=== PATIENT | male | born 1960 | race Caucasian/White ===

== ENCOUNTER → 2018-03-10 | Outpatient (CLI) | payer SELFPAY ==
--- NOTE | 2018-03-10 16:32 | RAD ---
03/10/2018 Ankle-brachial indices. Bilateral lower extremity arterial duplex ultrasound. INDICATION: Bilateral pedal edema COMPARISON STUDY: None available Discussion: Blood pressure measurements were obtained at the arms and ankles bilaterally. Ultrasound evaluation of the major arteries of bilateral lower extremities was performed including color Doppler imaging and spectral analysis. Static images are submitted to PACS. Right brachial pressure: 124 mmHg Left brachial pressure: 120 mmHg Right ankle pressure: 127 mmHg Left ankle pressure: 142 mmHg Right ankle brachial index 1.0 Left ankle-brachial index 1.1 Grossly normal waveforms and velocities are seen throughout the major arteries of the bilateral lower extremities. No focal elevation of velocities suggestive of hemodynamically significant stenosis are identified. No high-grade visual narrowing is are identified on color Doppler imaging. Lower extremity edema is noted bilaterally. IMPRESSION: Normal ankle-brachial indices. No sonographic evidence of focal hemodynamic significant stenosis involving major arteries of either lower extremity. Electronically signed by: Robinson Ngo MD (03/10/2018 4:28 PM) [facility]
== END | disposition home or self-care (01) ==
LOC: US 09:54
PROVIDERS: ATTEND Physician Assistant
DX: R60.0 Localized edema (principal)
CPT/HCPCS: 93922; 93925

== ENCOUNTER 2018-04-04 14:49 | Inpatient (IN) | payer OTHER ==
[~2018-04-04] VITALS: Ht 185.4 cm; Wt 137.0 kg
[2018-04-04 16:26] VITALS: BP 107/64
[2018-04-04 17:03] LABS: BASO # 0.1 x10^3/uL (0.0-0.2); BASO % 1 % (0-3); EOS # 0.1 x10^3/uL (0.0-0.7); EOS % 2 % (0-3); HEMATOCRIT 57.3 % (39.0-53.0); HEMOGLOBIN 18.6 g/dL (13.0-17.5); LYMPH # 1.2 x10^3/uL (1.0-4.8); LYMPH % 12 % (24-48); MEAN CORPUSCULAR HEMOGLOBIN 29 pg (25-35); MEAN CORPUSCULAR HGB CONC 32 g/dL (31-37); MEAN CORPUSCULAR VOLUME 90 fL (79-100); MONO # 1.3 x10^3/uL (0.0-1.1); MONO % 14 % (0-9); NEUT # 6.8 x10^3uL (1.8-7.7); NEUT % 72 % (31-73); PLATELET COUNT 133 x10^3/uL (140-400); RED BLOOD COUNT 6.35 x10^6/uL (4.30-5.70); RED CELL DISTRIBUTION WIDTH 16.3 % (11.5-14.5); WHITE BLOOD COUNT 9.5 x10^3/uL (4.0-11.0)
[2018-04-04 17:14] LABS: ALBUMIN 2.8 g/dL (3.4-5.0); ALBUMIN/GLOBULIN RATIO 0.8 (1.0-1.7); CALCIUM 8.3 mg/dL (8.5-10.1); CREATININE 1.4 mg/dL (0.7-1.3); GFR 52.2; POTASSIUM 3.1 mmol/L (3.5-5.1); TOTAL BILIRUBIN 1.2 mg/dL (0.2-1.0); TOTAL PROTEIN 6.4 g/dL (6.4-8.2)
[2018-04-04] MEDS ORDERED: GABA-586 PO (17:15)
[2018-04-04] MEDS ORDERED: LOSA25TA PO (17:15)
[2018-04-04] MEDS ORDERED: BUDE10.2 IH (17:15)
[2018-04-04] MEDS ORDERED: ALBU2.5V5 NEB (17:15)
[2018-04-04] MEDS ORDERED: METO-247 PO (17:15)
[2018-04-04] MEDS ORDERED: FURO80TA3 PO (17:15)
[2018-04-04] MEDS ORDERED: POTA20TA4 PO (17:15)
--- NOTE | 2018-04-04 17:24 | RAD ---
CHEST AP ONLY Clinical Indication: COPD/ASTHMA, EDEMA IN LOWER EXTREMITIES Comparison: AP chest September 07, 2014. Findings: The cardiomediastinal silhouette is normal. The central pulmonary vasculature is prominent. There are increased interstitial markings. Findings are similar to prior study. Mild left retrocardiac airspace disease. There is no pneumothorax. No pleural effusion is appreciated. No acute bone abnormality. IMPRESSION: 1. Pulmonary vascular congestion. 2. Mild left basilar retrocardiac airspace disease. Electronically signed by: Jb Negro MD (04/04/2018 5:20 PM) [facility]
[2018-04-04] MEDS ORDERED: POTASSIUM CHLORIDE 20 MEQ TABLET.ER. PO ONE (17:30)
[2018-04-04] MEDS ORDERED: ALBUTEROL SULFATE 2.5 MG/3 ML NEBU. NEB PRN (17:30)
[2018-04-04] MEDS: IPRATRPIUM/ALBUTEROL 0.5/2.5MG 3 ML NEBU. NEB SCH ×2 (17:44→19:40)
[2018-04-04] MEDS ORDERED: FUROSEMIDE 40 MG/4 ML VIAL IVP ONE (17:45)
[2018-04-04] MEDS ORDERED: LORazepam 1 MG TABLET PO PRN ×2 (18:00)
[2018-04-04] MEDS ORDERED: NICOTINE 21MG PATCH. TD PRN (18:00)
[2018-04-04 18:35] LABS: BGAS PH 7.31 (7.35-7.46)
--- NOTE | 2018-04-04 18:38 | HP ---
ADMIT DATE: 04/04/2018 HISTORY OF PRESENT ILLNESS: The patient is a 57-year-old male patient who was admitted directly from clinic complaining of pain and swelling of both lower extremities, weight gain. He stated that for the last year, he gained about 60 pounds and over the last week, he gained about 7 pounds. He did complain of shortness of breath, but denied any chest pain; does complain of orthopnea and paroxysmal nocturnal dyspnea. PAST MEDICAL HISTORY: His past medical history is significant for hypertension, chronic obstructive pulmonary disease, morbid obesity, obstructive sleep apnea. PAST SURGICAL HISTORY: Past surgical history is significant for tonsillectomy, excision of melanoma from the left axillary area and arthroscopic knee surgery both sides. ALLERGIES: He has no known drug allergies. MEDICATIONS: His medication list still is not available by this time I dictated this H and P. FAMILY HISTORY: He has one brother younger and seemingly healthy. His father at the age of 48 because of cerebral aneurysm, apparently has rheumatic fever, requiring valve replacement. Mother is still alive at age of 77 and survivor of colon cancer x twice. SOCIAL HISTORY: He is , has a son. He smokes 1 pack per day. He drinks 7-80 beers per week and drinks anything between 1-18 beers a day. 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 REVIEW OF SYSTEMS: The patient denied any blurring of vision, cataract, glaucoma or macular degeneration. Denied any earache, tinnitus or sensorineural deafness. Denied any nosebleeds, stuffy nose or postnasal drip. Denied any sore throat, sore tongue, toothache, hoarseness of voice or difficulty swallowing. Denied any nausea, vomiting, diarrhea or constipation. Denied any hematemesis, melena or hematochezia. Denied any dysuria, frequency or hematuria. Denied any chest pain. Did complain of shortness of breath, orthopnea or paroxysmal nocturnal dyspnea. Denied any cough, phlegm or hemoptysis. Denied any dizziness, lightheadedness, or vertigo. Denied any chills, rigors or fever. PHYSICAL EXAMINATION: GENERAL: When examining him, he was resting, slightly propped up in bed, in no apparent respiratory distress. There was no pallor, jaundice, cyanosis, or thyromegaly. No jugular venous distension. No limb edema. VITAL SIGNS: Her heart rate was 95, blood pressure was 107/64, temperature was 98.3, respiratory rate was 24, and oxygen saturation was only 86% on 4 liters oxygen. HEENT: Examination of the head, eyes, ears, nose and throat showed normocephalic, atraumatic. NECK: Supple. HEART: Showed normal first and second heart sounds with no gallop, rub or murmur. CHEST: Shows central trachea, equal chest expansion, air entry, vesicular sounds with bilateral scattered rhonchi diffusely. Both sides, I could not appreciate any crepitation. ABDOMEN: Markedly distended, soft, nontender. No guarding or rigidity. No organomegaly. Hernial orifices are intact and bowel sounds normal. NEUROLOGIC: He was awake, alert, responding appropriately. All his cranial nerves are intact. EXTREMITIES: He moves extremities without difficulty. Examination of the extremities showed that he has no clubbing, cyanosis with marked bilateral lower limb edema. LABORATORY DATA: His lab work showed a white cell count of 9500, hemoglobin 18.6, hematocrit 57.3, MCV 90, and platelet count of 133,000. His chemistry is still pending at the time of this dictation. ASSESSMENT AND PLAN: So, in summary, this is a 57-year-old male patient who was admitted with bgfxn-ud-eudamde hypoxic, probably hypercapnic respiratory failure, chronic obstructive pulmonary disease exacerbation, hypertension, obstructive sleep apnea and morbid obesity. We will obviously check his chest x-ray, his lab work. I will also add prothrombin time and INR as well ammonia level to his lab work. A chest x-ray and perhaps have blood gases and I will consult the cardiology team for to assist his management tomorrow. Apparently, he was on Zaroxolyn and he is getting 80 mg of Lasix without much improvement. JOSLYN VELOZ MD DR: SIMON/abdullahi JOB#: [id number] / [id number]
[2018-04-04 19:35] VITALS: BP 118/59
[2018-04-04] MEDS: BUDESONIDE 0.5 MG/2 ML NEBU NEB SCH (19:40)
[2018-04-04 20:37] VITALS: BP 95/57
[2018-04-04] MEDS: GABAPENTIN 300 MG CAPSULE. PO SCH (21:00)
[2018-04-04] MEDS: POTASSIUM CHLORIDE 20 MEQ TABLET.ER. PO SCH (21:00)
[2018-04-04] MEDS ORDERED: NON FORMULARY ITEM (Budesonide/Formoterol Fumarate (Symbicort 160-4.5 Mcg Inhaler) 2 PUFF) IH SCH (21:00)
[2018-04-04 21:32] LABS: BACTERIA,URINE FEW /HPF (0-FEW); BILIRUBIN,URINE NEG (NEG); CLARITY,URINE CLEAR; COLOR,URINE YELLOW; GLUCOSE,URINE NEG (NEG); NITRITE,URINE NEG (NEG); RBC,URINE OCC /HPF (0-2); SQUAMOUS EPITHELIAL CELL,UR OCC /LPF; UROBILINOGEN,URINE 0.2 mg/dL (0.2 mg/dL); WBC,URINE RARE /HPF (0-4)
[2018-04-04 21:33] LABS: HYALINE CASTS, URINE OCC /HPF
[2018-04-04] MEDS: ENOXAPARIN ** NOTE DOSE ** SYRINGE SQ SCH (22:13)
[2018-04-04] MEDS: methylPREDNISolone SOD SUCC PF 40 MG/ML VIAL. IV SCH (22:13)
[2018-04-04 22:17] LABS: BGAS PH 7.3 (7.35-7.46)
[2018-04-04 22:30] VITALS: BP 96/56
[2018-04-05] VITALS (9 sets, daily range): BP systolic 99–117; BP diastolic 57–68
[2018-04-05] MEDS: IPRATRPIUM/ALBUTEROL 0.5/2.5MG 3 ML NEBU. NEB SCH ×4 (05:39→21:07)
[2018-04-05] MEDS: methylPREDNISolone SOD SUCC PF 40 MG/ML VIAL. IV SCH ×3 (06:14→20:59)
[2018-04-05 06:22] LABS: BGAS PH 7.37 (7.35-7.46)
[2018-04-05 07:04] LABS: HEMATOCRIT 58.4 % (39.0-53.0); HEMOGLOBIN 18.6 g/dL (13.0-17.5); RED BLOOD COUNT 6.41 x10^6/uL (4.30-5.70); RED CELL DISTRIBUTION WIDTH 16.7 % (11.5-14.5); WHITE BLOOD COUNT 7.9 x10^3/uL (4.0-11.0)
[2018-04-05 07:18] LABS: CALCIUM 8.5 mg/dL (8.5-10.1); CREATININE 1.4 mg/dL (0.7-1.3); GFR 52.2; POTASSIUM 3.5 mmol/L (3.5-5.1)
[2018-04-05] MEDS: METOPROLOL SUCC 24HR ER 50 MG TAB.ER.24H. PO SCH (08:33)
[2018-04-05] MEDS: MULTIVITAMIN with MINERAL TABLET. PO SCH (08:33)
[2018-04-05] MEDS: THIAMINE IM 200 MG/2 ML VIAL. IM SCH (08:33)
[2018-04-05] MEDS: FOLIC ACID 1 MG TABLET PO SCH (08:34)
[2018-04-05] MEDS: POTASSIUM CHLORIDE 20 MEQ TABLET.ER. PO SCH ×3 (08:34→20:59)
[2018-04-05] MEDS: GABAPENTIN 300 MG CAPSULE. PO SCH ×3 (08:34→20:58)
[2018-04-05] MEDS: FUROSEMIDE 80 MG TABLET PO SCH (08:34)
[2018-04-05] MEDS: LOSARTAN 25 MG TABLET. PO SCH (08:34)
[2018-04-05] MEDS: ENOXAPARIN ** NOTE DOSE ** SYRINGE SQ SCH ×2 (08:35→20:59)
[2018-04-05] MEDS ORDERED: POTASSIUM CHLORIDE 20 MEQ TABLET.ER. PO SCH (09:00)
[2018-04-05] MEDS: BUDESONIDE 0.5 MG/2 ML NEBU NEB SCH ×2 (10:08→21:07)
--- NOTE | 2018-04-05 11:59 | PN ---
DATE: 04/05/2018 SUBJECTIVE: The patient is sitting in the edge of the bed, on BiPAP machine, maintaining his oxygen saturation 92% on FiO2 of 40%. He desats quickly, he takes off his BiPAP machine. On questioning him, he denied any chest pain. He continued to have marked bilateral lower limb edema. We did treat him with IV Lasix yesterday 40 mg once a day. PHYSICAL EXAMINATION: GENERAL: When I examined him, he looked well and was clearly in no apparent respiratory distress, has definitely no pallor, jaundice or cyanosis. No lymphadenopathy, no thyromegaly; marked bilateral generalized anasarca. VITAL SIGNS: His heart rate was 84, blood pressure 106/66, temperature was 98.7, respiratory rate was 30 and oxygen saturation was 89%. HEENT: Examination of the head, eyes, ears, nose and throat showed normocephalic, atraumatic. NECK: Supple. HEART: Showed normal first and second heart sounds with no gallop, rub or murmur. CHEST: Shows central trachea, equally reduced expansion, reduced air entry. I could not really appreciate any crepitation or rhonchi. ABDOMEN: Markedly distended, soft with periumbilical hernia. There is no guarding or rigidity. No organomegaly. Hernial orifices are intact and bowel sounds normal. NEUROLOGIC: He is awake, alert, responding appropriately. All his cranial nerves are intact. He moves extremities without difficulty. His intake over the last 24 hour was 360, output was 1050. LABORATORY DATA AND IMAGING STUDIES: His lab work as of this morning showed a white cell count 7900, hemoglobin 18.6, hematocrit 58.4, MCV 91, and platelet count of 134,000. His blood gas this morning showed pH of 7.37, pCO2 of 73, pO2 of 65, bicarbonate of 42, and oxygen saturation was 90% on FiO2 55%. His chemistry showed a serum sodium 143, potassium 3.5, chloride 97, bicarbonate 40, anion gap of 6, BUN 44, creatinine 1.4, estimated GFR was 52 mL per minute. His glucose was 122, calcium was 8.5. His prothrombin time was 12.8, INR of 1.3. Urinalysis was essentially unremarkable. His chest x-ray showed that the cardiomediastinal silhouette normal. The central pulmonary vasculature is prominent. There are increased interstitial markings. He has mild left retrocardiac airspace disease. There is no pneumothorax. No pleural effusion is appreciated with no acute bony abnormalities with the impression is that the patient has pulmonary vascular congestion, mild left basilar retrocardiac airspace disease. ASSESSMENT: So, in summary, this is a 57-year-old male patient, who was admitted with vjcjy-mf-pepnkfr hypoxic hypercapnic respiratory failure. He has tzhaw-bf-jtqlpuk congestive heart failure, morbid obesity, obstructive sleep apnea. PLAN: Plan is to continue with IV Lasix, continue with all his medication, continue with BiPAP machine. I have consulted the Cardiology team to assist with the management. JOSLYN VELOZ MD DR: SIMON/abdullahi JOB#: [id number] / [id number]
--- NOTE | 2018-04-05 12:16 | EKG ---
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
--- NOTE | 2018-04-05 16:50 | PDOC2 ---
CONSULT Date of Admission DATE: 04/05/18 TIME: 16:35 Reason for Consult: heart failure Referring Physician: Dr. Zamora Chief Complaint SOB Source: Patient History of Present Illness The patient is a 57 year old male admitted for increasing SOB, HDZ and lower extremity swelling. This has been progressive over several months. The patient denies chest pain. He has a history of COPD and continues to smoke. He is morbidly obese and has KIAH. After treatment with lasix is is feeling slightly better. CXR shows vascular congestion. No acute EKG changes. Cardiovascular: HTN Pulmonary: Bronchitis, COPD, Other (KIAH) GI: GERD Musculoskeletal: Osteoarthritis Past Surgical History: Tonsillectomy, Other (melinoma excision, bilateral orthoscopic knee surgery) Family History: Hypertension Smoke: 1 pack per day ALCOHOL: heavy Current Medications Current Medications Albuterol Sulfate (Ventolin) 2.5 mg PRN Q6HRS PRN NEB SHORTNESS OF BREATH; Start 04/04/18 at 17:30 Gabapentin (Neurontin) 300 mg TID PO Last administered on 04/05/18at 14:08; Start 04/04/18 at 21:00 Losartan Potassium (Cozaar) 25 mg DAILY PO ; Start 04/05/18 at 09:00 Potassium Chloride (Klor-Con) 20 meq DAILY PO ; Start 04/05/18 at 09:00; Status UNV Non-Formulary Medication (Budesonide/ Formoterol Fumarate (Symbicort 160-4.5 Mcg Inhaler)) 2 puff BID IH ; Start 04/04/18 at 21:00; Status UNV Furosemide (Lasix) 80 mg DAILY PO Last administered on 04/05/18at 08:34; Start 04/05/18 at 09:00 Metoprolol Succinate (Toprol Xl) 100 mg DAILY PO Last administered on at 08:33; Start 04/05/18 at 09:00 Albuterol/ Ipratropium (Duoneb) 3 ml RTQID NEB Last administered on 04/05/18at 15:39; Start 04/04/18 at 20:00 Methylprednisolone Sodium Succinate (SOLU-Medrol 40MG VIAL) 40 mg Q8HRS IV Last administered on 04/05/18at 14:08; Start 04/04/18 at 22:00 Potassium Chloride (Klor-Con) 40 meq 1X ONCE PO Last administered on at 17:58; Start 04/04/18 at 17:30; Stop 04/04/18 at 17:37; Status DC Potassium Chloride (Klor-Con) 20 meq TID PO Last administered on 04/05/18at 14: 08; Start 04/04/18 at 21:00 Furosemide (Lasix) 40 mg 1X ONCE IVP Last administered on 04/04/18at 17:58; Start 04/04/18 at 17:45; Stop 04/04/18 at 17:46; Status DC Budesonide (Pulmicort) 0.5 mg RTBID NEB Last administered on 04/05/18at 10:08; Start 04/04/18 at 20:00 Multivitamins/ Calcium (Thera-M Plus) 1 tab DAILY PO Last administered on 04/05at 08:33; Start 04/05/18 at 09:00 Folic Acid (Folic Acid) 1 mg DAILY PO Last administered on 04/05/18at 08:34; Start 04/05/18 at 09:00 Thiamine HCl (Thiamine Im) 100 mg DAILY IM Last administered on 04/05/18at 08: 33; Start 04/05/18 at 09:00; Stop 04/10/18 at 08:59 Lorazepam (Ativan) 4 mg PRN Q1HR PRN PO For CIWA 8-14; Start 04/04/18 at 18:00 Lorazepam (Ativan) 8 mg PRN Q1HR PRN PO For CIWA 15 or greater; Start at 18:00 Nicotine (Nicoderm Cq 21mg) 1 patch PRN DAILY PRN TD SMOKING CESSATION; Start 04/04/18 at 18:00 Enoxaparin Sodium (Lovenox 150mg Syringe) 150 mg Q12HR SQ Last administered on 04/05/18at 08:35; Start 04/04/18 at 21:00 Active Scripts Active Reported Gabapentin (Gabapentin) 300 Mg Capsule 300 Mg PO TID Symbicort 160-4.5 Mcg Inhaler (Budesonide/Formoterol Fumarate) 10.2 Gm Hfa.aer.ad 2 Puff IH BID Cozaar (Losartan Potassium) 25 Mg Tablet 25 Mg PO DAILY Albuterol Sulfate Neb Soln (Albuterol Sulfate) 2.5 Mg/3 Ml Vial.neb 1 Vial NEB PRN Q6HRS PRN Metoprolol Succinate ( Xl ) (Metoprolol Succinate) 100 Mg Tab.er.24h 1 Tab PO DAILY Klor-Con M20 (Potassium Chloride) 20 Meq Tab.er.prt 1 Tab PO DAILY Furosemide 80 Mg Tablet 1 Tab PO DAILY Allergies: Coded Allergies: No Known Drug Allergies (Unverified , 04/04/18) General: YES: Fatigue Respiratory: YES: Shortness of breath, SOB with excertion General: mild distress HEENT: Atraumatic Lungs: Other (Mildly decreased breath sounds.) Heart: Regular rate Abdomen: Normal bowel sounds VITALS Vital Signs Date Time Temp Pulse Resp B/P (MAP) Pulse Ox O2 Delivery O2 Flow Rate FiO2 04/05/18 15:40 86 Nasal Cannula 3.0 04/05/18 12:00 89 117/61 (79) 04/05/18 06:13 98.7 04/05/18 05:51 30 Labs Laboratory Tests Test 04/04/18 16:50 04/04/18 18:00 04/04/18 21:00 04/04/18 22:05 White Blood Count 9.5 x10^3/uL (4.0-11.0) Red Blood Count 6.35 x10^6/uL (4.30-5.70) Hemoglobin 18.6 g/dL (13.0-17.5) Hematocrit 57.3 % (39.0-53.0) Mean Corpuscular Volume 90 fL (79-100) Mean Corpuscular Hemoglobin 29 pg (25-35) Mean Corpuscular Hemoglobin Concent 32 g/dL (31-37) Red Cell Distribution Width 16.3 % (11.5-14.5) Platelet Count 133 x10^3/uL (140-400) Neutrophils (%) (Auto) 72 % (31-73) Lymphocytes (%) (Auto) 12 % (24-48) Monocytes (%) (Auto) 14 % (0-9) Eosinophils (%) (Auto) 2 % (0-3) Basophils (%) (Auto) 1 % (0-3) Neutrophils # (Auto) 6.8 x10^3uL (1.8-7.7) Lymphocytes # (Auto) 1.2 x10^3/uL (1.0-4.8) Monocytes # (Auto) 1.3 x10^3/uL (0.0-1.1) Eosinophils # (Auto) 0.1 x10^3/uL (0.0-0.7) Basophils # (Auto) 0.1 x10^3/uL (0.0-0.2) Prothrombin Time 12.8 SEC (9.4-11.4) Prothromb Time International Ratio 1.3 (0.9-1.1) Sodium Level 141 mmol/L (136-145) Potassium Level 3.1 mmol/L (3.5-5.1) Chloride Level 96 mmol/L (98-107) Carbon Dioxide Level 39 mmol/L (21-32) Anion Gap 6 (6-14) Blood Urea Nitrogen 43 mg/dL (8-26) Creatinine 1.4 mg/dL (0.7-1.3) Estimated GFR (Cockcroft-Gault) 52.2 BUN/Creatinine Ratio 31 (6-20) Glucose Level 97 mg/dL (70-99) Calcium Level 8.3 mg/dL (8.5-10.1) Total Bilirubin 1.2 mg/dL (0.2-1.0) Aspartate Amino Transf (AST/SGOT) 27 U/L (15-37) Alanine Aminotransferase (ALT/SGPT) 28 U/L (16-63) Alkaline Phosphatase 56 U/L (46-116) Total Protein 6.4 g/dL (6.4-8.2) Albumin 2.8 g/dL (3.4-5.0) Albumin/Globulin Ratio 0.8 (1.0-1.7) Blood Gas pH 7.31 (7.35-7.46) 7.30 (7.35-7.46) Blood Gas PCO2 80 mmHg (35-46) 79 mmHg (35-46) Blood Gas PO2 65 mmHg (80-100) 55 mmHg (80-100) Blood Gas HCO3 41 mmol/L (21-28) 39 mmol/L (21-28) Arterial Bld O2 Saturation (Calc) 89 % (92-99) 84 % (92-99) FiO2 40 % 45 % Urine Collection Type Unknown Urine Color Yellow Urine Clarity Clear Urine pH 5.0 Urine Specific [place] 1.010 Urine Protein Neg (NEG-TRACE) Urine Glucose (UA) Neg mg/dL (NEG) Urine Ketones (Stick) Neg mg/dL (NEG) Urine Blood Neg (NEG) Urine Nitrite Neg (NEG) Urine Bilirubin Neg (NEG) Urine Urobilinogen Dipstick 0.2 mg/dL (0.2 mg/dL) Urine Leukocyte Esterase Neg (NEG) Urine RBC Occ /HPF (0-2) Urine WBC Rare /HPF (0-4) Urine Squamous Epithelial Cells Occ /LPF Urine Bacteria Few /HPF (0-FEW) Urine Hyaline Casts Occ /HPF Urine Mucus Slight /LPF Test 04/05/18 06:05 04/05/18 06:22 Blood Gas pH 7.37 (7.35-7.46) Blood Gas PCO2 73 mmHg (35-46) Blood Gas PO2 65 mmHg (80-100) Blood Gas HCO3 42 mmol/L (21-28) Arterial Bld O2 Saturation (Calc) 90 % (92-99) FiO2 55 % White Blood Count 7.9 x10^3/uL (4.0-11.0) Red Blood Count 6.41 x10^6/uL (4.30-5.70) Hemoglobin 18.6 g/dL (13.0-17.5) Hematocrit 58.4 % (39.0-53.0) Mean Corpuscular Volume 91 fL (79-100) Mean Corpuscular Hemoglobin 29 pg (25-35) Mean Corpuscular Hemoglobin Concent 32 g/dL (31-37) Red Cell Distribution Width 16.7 % (11.5-14.5) Platelet Count 134 x10^3/uL (140-400) Sodium Level 143 mmol/L (136-145) Potassium Level 3.5 mmol/L (3.5-5.1) Chloride Level 97 mmol/L (98-107) Carbon Dioxide Level 40 mmol/L (21-32) Anion Gap 6 (6-14) Blood Urea Nitrogen 44 mg/dL (8-26) Creatinine 1.4 mg/dL (0.7-1.3) Estimated GFR (Cockcroft-Gault) 52.2 Glucose Level 122 mg/dL (70-99) Calcium Level 8.5 mg/dL (8.5-10.1) Images CXR with vascular congestion. Assessment/Plan 1. Acute respiratory failure. Acute exacerbation of COPD as well as heart failure. Agree with lasix and monitoring lab. Pulmonary treatments. The patient continues to smoke. 2. Acute on chronic heart failure. Probably diastolic but in the setting of heavy ETOH use he may have decreased LV function. Diuretics, ECHO and monitoring of lab at this point. 3. Morbid obesity and KIAH. Continues to gain weight. Treatment as above. Future pulmonary evakuation. 4. ETOH abuse. Probably heavy ETOH abuse. ECHO as above. Possible withdrawal during hospitalization. 5. HTN. Will continue to monitor. 6. Unknown cholesterol level. Check liver panel. Thank you for allowing us to participate in the care of your patient. HILLARY PARKER MD Apr 05, 2018 16:50
[2018-04-06 03:00] VITALS: BP 135/74
[2018-04-06] MEDS: methylPREDNISolone SOD SUCC PF 40 MG/ML VIAL. IV SCH ×3 (05:01→21:23)
[2018-04-06] MEDS: IPRATRPIUM/ALBUTEROL 0.5/2.5MG 3 ML NEBU. NEB SCH ×4 (05:43→20:34)
[2018-04-06 06:49] LABS: ALBUMIN 3.1 g/dL (3.4-5.0); CALCIUM 8.3 mg/dL (8.5-10.1); CREATININE 1.4 mg/dL (0.7-1.3); DIRECT BILIRUBIN 0.4 mg/dL (0.0-0.2); GFR 52.2; MAGNESIUM 2.5 mg/dL (1.8-2.4); TOTAL BILIRUBIN 1.1 mg/dL (0.2-1.0)
[2018-04-06 07:52] VITALS: BP 134/77
[2018-04-06] MEDS: POTASSIUM CHLORIDE 20 MEQ TABLET.ER. PO SCH ×3 (08:26→21:23)
[2018-04-06] MEDS: FUROSEMIDE 80 MG TABLET PO SCH (08:26)
[2018-04-06] MEDS: GABAPENTIN 300 MG CAPSULE. PO SCH ×3 (08:26→21:23)
[2018-04-06] MEDS: METOPROLOL SUCC 24HR ER 50 MG TAB.ER.24H. PO SCH (08:26)
[2018-04-06] MEDS: LOSARTAN 25 MG TABLET. PO SCH (08:26)
[2018-04-06] MEDS: MULTIVITAMIN with MINERAL TABLET. PO SCH (08:26)
[2018-04-06] MEDS: FOLIC ACID 1 MG TABLET PO SCH (08:27)
[2018-04-06] MEDS: ENOXAPARIN ** NOTE DOSE ** SYRINGE SQ SCH ×2 (08:27→21:23)
[2018-04-06] MEDS: THIAMINE IM 200 MG/2 ML VIAL. IM SCH (08:27)
[2018-04-06] MEDS: BUDESONIDE 0.5 MG/2 ML NEBU NEB SCH ×2 (10:28→20:34)
[2018-04-06 11:23] VITALS: BP 121/63
--- NOTE | 2018-04-06 11:42 | PN ---
DATE: 04/06/2018 SUBJECTIVE: The patient is resting, slightly propped up in bed, in no apparent distress. He is clearly hypoxic with central cyanosis. Unfortunately, he does not tolerate BiPAP machine and on 3-1/2 of oxygen by nasal cannula. His oxygen saturation is only 75%. On questioning him; however, he feels fine. The only concern he has is to he wanted to have his edema on both legs improved. PHYSICAL EXAMINATION: GENERAL: When I examined him this morning, he was clearly cyanosed, not jaundiced, no lymphadenopathy, no thyromegaly. No jugular venous distention with marked generalized anasarca. VITAL SIGNS: His heart rate was 78, blood pressure was 134/77, temperature was 98.6, respiratory rate was 24, and oxygen saturation was 85% on 3-1/2 liters of oxygen by nasal cannula. HEAD, EYES, EARS, NOSE AND THROAT: Showed normocephalic, atraumatic. NECK: Supple. HEART: Showed normal first and second heart sounds. No gallop, rub or murmur. CHEST: Clear to auscultation. No crepitation or rhonchi. ABDOMEN: Distended, soft, nontender. No guarding or rigidity. No organomegaly. Hernial orifice intact. Bowel sounds normal. NEUROLOGIC: He was sleepy, but arousable. Cranial nerves are intact. He moves extremities without difficulty. His intake over the last 24 hours was 360, output was 1050. LABORATORY DATA: As of this morning, his serum sodium was 143, potassium 4, chloride 97, bicarbonate 42, anion gap of 4, BUN 46, creatinine 1.4, estimated GFR was 52 mL per minute. His glucose 139, calcium was 8.3, magnesium was 2.5. Total bilirubin, AST, ALT, alkaline phosphatase were normal. Total protein 7, albumin was 3.1. His white cell count was 7900, hemoglobin 18.6, hematocrit 58.4, MCV 91, and platelet count 134,000. ASSESSMENT: 1. Yijxw-wm-lodxlly hypoxic hypercapnic respiratory failure. The patient unfortunately refused to continue with BiPAP. 2. Rqtst-my-idrlsus heart failure, probably diastolic. However, in the setting of heavy alcohol use, he might have also systolic component and alcohol abuse. The patient drinks between 1 to 18 beers a day. 3. Hypertension seems to be well controlled. 4. He has also hypokalemia for which he is getting potassium 3 times a day. I will probably increase his Lasix to 40 mg IV and we will check his fasting lipid profile tomorrow. Apparently, he was seen by Dr. Mortensen and an echocardiogram was scheduled. JOSLYN VELOZ MD DR: SIMON/abdullahi JOB#: [id number] / [id number]
[2018-04-06] MEDS: FUROSEMIDE 40 MG/4 ML VIAL IVP SCH (14:42)
[2018-04-06 14:46] VITALS: BP 121/79
[2018-04-06 18:31] VITALS: BP 126/57
[2018-04-06 19:08] LABS: HEMATOCRIT 59.4 % (39.0-53.0); HEMOGLOBIN 18.3 g/dL (13.0-17.5); RED BLOOD COUNT 6.41 x10^6/uL (4.30-5.70); WHITE BLOOD COUNT 10.8 x10^3/uL (4.0-11.0)
--- NOTE | 2018-04-06 19:48 | RAD ---
CT abdomen and pelvis without contrast 04/06/2018 Clinical indications: Hematuria, abdominal pain. COMPARISON: None. TECHNIQUE: Multiple CT images of the abdomen and pelvis were obtained without contrast. *One or more of the following individualized dose reduction techniques were utilized for this examination: 1. Automated exposure control. 2. Adjustment of the mA and/or kV according to patient size. 3. Use of iterative reconstruction technique. FINDINGS: Heart size is normal. Mild bibasilar atelectasis. Evaluation of the solid abdominal pelvic viscera, lymphadenopathy and vasculature is limited in the absence of intravenous contrast. Unenhanced contours of the liver, gallbladder, adrenal glands, and pancreas are grossly unremarkable. Mild splenomegaly measuring 13.8 cm. Both kidneys present without hydronephrosis or nephrolithiasis. There is mild nonspecific perinephric stranding, most, seen with chronic kidney disease. There are multiple mildly prominent retroperitoneal and bilateral iliac chain lymph nodes. Mild bilateral iliac lymphadenopathy. Investigative Analyst right common iliac lymphadenopathy measures 1.4 x 2.3 cm series 3/image 4:15. Investigative Analyst left external iliac lymphadenopathy measures 1.4 x 2.3 cm series 3/image 503. Small and large bowel loops are normal in caliber without obstruction. No abdominal free fluid. No pneumoperitoneum. Appendix is normal in appearance. Urinary bladder, prostate and seminal vesicles are unremarkable. There are no destructive osseous lesions. There is a fat-containing umbilical hernia. IMPRESSION: 1. No hydronephrosis or nephrolithiasis. 2. Numerous mild a prominent retroperitoneal lymph nodes with bilateral iliac lymphadenopathy, indeterminate between malignant and reactive. Biopsy could be performed for further evaluation, if clinically indicated. 3. Mild splenomegaly. Electronically signed by: Henry Shipman MD (04/06/2018 7:44 PM) [id number]
[2018-04-07] MEDS: IPRATRPIUM/ALBUTEROL 0.5/2.5MG 3 ML NEBU. NEB SCH ×4 (05:22→21:04)
[2018-04-07 05:49] VITALS: BP 114/68
[2018-04-07] MEDS: methylPREDNISolone SOD SUCC PF 40 MG/ML VIAL. IV SCH ×2 (06:21→18:04)
[2018-04-07 06:40] LABS: BASO % 0 % (0-3); EOS % 0 % (0-3); HEMATOCRIT 59.4 % (39.0-53.0); HEMOGLOBIN 18.5 g/dL (13.0-17.5); LYMPH # 0.6 x10^3/uL (1.0-4.8); LYMPH % 6 % (24-48); MEAN CORPUSCULAR HEMOGLOBIN 29 pg (25-35); MEAN CORPUSCULAR HGB CONC 31 g/dL (31-37); MEAN CORPUSCULAR VOLUME 93 fL (79-100); MONO # 0.5 x10^3/uL (0.0-1.1); MONO % 5 % (0-9); NEUT # 8.8 x10^3uL (1.8-7.7); NEUT % 89 % (31-73); PLATELET COUNT 132 x10^3/uL (140-400); RED BLOOD COUNT 6.39 x10^6/uL (4.30-5.70); WHITE BLOOD COUNT 9.9 x10^3/uL (4.0-11.0)
[2018-04-07 06:45] LABS: ALBUMIN 3.1 g/dL (3.4-5.0); ALBUMIN/GLOBULIN RATIO 0.8 (1.0-1.7); CALCIUM 8.4 mg/dL (8.5-10.1); CREATININE 1.3 mg/dL (0.7-1.3); GFR 56.9; POTASSIUM 3.8 mmol/L (3.5-5.1); TOTAL PROTEIN 6.8 g/dL (6.4-8.2)
[2018-04-07] MEDS: FUROSEMIDE 40 MG/4 ML VIAL IVP SCH ×2 (08:23→14:01)
[2018-04-07] MEDS: METOPROLOL SUCC 24HR ER 50 MG TAB.ER.24H. PO SCH (08:24)
[2018-04-07] MEDS: LOSARTAN 25 MG TABLET. PO SCH (08:24)
[2018-04-07] MEDS: MULTIVITAMIN with MINERAL TABLET. PO SCH (08:24)
[2018-04-07] MEDS: GABAPENTIN 300 MG CAPSULE. PO SCH ×3 (08:24→20:35)
[2018-04-07] MEDS: FOLIC ACID 1 MG TABLET PO SCH (08:25)
[2018-04-07] MEDS: POTASSIUM CHLORIDE 20 MEQ TABLET.ER. PO SCH ×3 (08:25→20:35)
[2018-04-07] MEDS: ENOXAPARIN ** NOTE DOSE ** SYRINGE SQ SCH (09:00)
--- NOTE | 2018-04-07 10:31 | PDOC ---
PROGRESS NOTES Assessment 1. Acute respiratory failure, multifactorial. Acute exacerbation of COPD per pcp Acute on chronic prob diastolic heart failure - check CXR today and if no congestion, change lasix to oral. await echo. Continue beta janey and ARB. 2. Probable venous insufficiency - suggest outpatient venous reflux study and compression hose, avoidance of sodium and elevate feet when possible 3. Etoh abuse, cessation encouraged 4. tobaccoism - encourage cessation 5. HTN. controlled on current medications. 6. morbid obesity - encourage weight reduction Subjective breathing ok but says he has not been up at all. no improvement in swelling. he denies shortness of breath at rest and denies orthopnea but does not ever sleep flat. Objective Vital Signs Date Time Temp Pulse Resp B/P (MAP) Pulse Ox O2 Delivery O2 Flow Rate FiO2 04/07/18 08:30 Nasal Cannula 3.5 04/07/18 08:24 98 114/68 04/07/18 05:49 98.7 24 90 Intake and Output 04/07/18 07:00 Intake Total 480 ml Output Total 1940 ml Balance -1460 ml Intake Oral 480 ml Output Urine Total 1940 ml Abdomen: Normal bowel sounds, Soft, No tenderness Heart: Normal S1, Normal S2, Other (no gallops) Extremities: Other (++ edema, left lower extremity with erythema, venous stasis changes) General: Alert, Oriented X3, Cooperative, No acute distress HEENT: Atraumatic, EOMI, Mucous membr. moist/pink Lungs: Clear to auscultation Neuro: Normal speech, Strength at 5/5 X4 ext Psych/Mental Status: Mental status NL, Mood NL Review of Relevant I have reviewed the following items mari (where applicable) has been applied. Labs Laboratory Tests Test 04/06/18 06:23 04/06/18 18:55 04/07/18 05:43 Sodium Level 143 mmol/L (136-145) 146 mmol/L (136-145) Potassium Level 4.0 mmol/L (3.5-5.1) 3.8 mmol/L (3.5-5.1) Chloride Level 97 mmol/L (98-107) 99 mmol/L (98-107) Carbon Dioxide Level 42 mmol/L (21-32) 44 mmol/L (21-32) Anion Gap 4 (6-14) 3 (6-14) Blood Urea Nitrogen 46 mg/dL (8-26) 37 mg/dL (8-26) Creatinine 1.4 mg/dL (0.7-1.3) 1.3 mg/dL (0.7-1.3) Estimated GFR (Cockcroft-Gault) 52.2 56.9 Glucose Level 139 mg/dL (70-99) 123 mg/dL (70-99) Calcium Level 8.3 mg/dL (8.5-10.1) 8.4 mg/dL (8.5-10.1) Magnesium Level 2.5 mg/dL (1.8-2.4) Total Bilirubin 1.1 mg/dL (0.2-1.0) 1.0 mg/dL (0.2-1.0) Direct Bilirubin 0.4 mg/dL (0.0-0.2) Aspartate Amino Transf (AST/SGOT) 21 U/L (15-37) 25 U/L (15-37) Alanine Aminotransferase (ALT/SGPT) 32 U/L (16-63) 33 U/L (16-63) Alkaline Phosphatase 54 U/L (46-116) 51 U/L (46-116) Total Protein 7.0 g/dL (6.4-8.2) 6.8 g/dL (6.4-8.2) Albumin 3.1 g/dL (3.4-5.0) 3.1 g/dL (3.4-5.0) Triglycerides Level 99 mg/dL (0-150) Cholesterol Level 138 mg/dL (0-200) LDL Cholesterol, Calculated 93 mg/dL (0-100) VLDL Cholesterol, Calculated 19 mg/dL (0-40) Non-HDL Cholesterol Calculated 112 mg/dL (0-129) HDL Cholesterol 26 mg/dL (40-60) Cholesterol/HDL Ratio 5.0 White Blood Count 10.8 x10^3/uL (4.0-11.0) 9.9 x10^3/uL (4.0-11.0) Red Blood Count 6.41 x10^6/uL (4.30-5.70) 6.39 x10^6/uL (4.30-5.70) Hemoglobin 18.3 g/dL (13.0-17.5) 18.5 g/dL (13.0-17.5) Hematocrit 59.4 % (39.0-53.0) 59.4 % (39.0-53.0) Mean Corpuscular Volume 93 fL (79-100) 93 fL (79-100) Mean Corpuscular Hemoglobin 29 pg (25-35) 29 pg (25-35) Mean Corpuscular Hemoglobin Concent 31 g/dL (31-37) 31 g/dL (31-37) Red Cell Distribution Width 17.0 % (11.5-14.5) 17.0 % (11.5-14.5) Platelet Count 135 x10^3/uL (140-400) 132 x10^3/uL (140-400) Neutrophils (%) (Auto) 89 % (31-73) Lymphocytes (%) (Auto) 6 % (24-48) Monocytes (%) (Auto) 5 % (0-9) Eosinophils (%) (Auto) 0 % (0-3) Basophils (%) (Auto) 0 % (0-3) Neutrophils # (Auto) 8.8 x10^3uL (1.8-7.7) Lymphocytes # (Auto) 0.6 x10^3/uL (1.0-4.8) Monocytes # (Auto) 0.5 x10^3/uL (0.0-1.1) Eosinophils # (Auto) 0.0 x10^3/uL (0.0-0.7) Basophils # (Auto) 0.0 x10^3/uL (0.0-0.2) BUN/Creatinine Ratio 28 (6-20) Albumin/Globulin Ratio 0.8 (1.0-1.7) Medications Current Medications Albuterol Sulfate (Ventolin) 2.5 mg PRN Q6HRS PRN NEB SHORTNESS OF BREATH; Start 04/04/18 at 17:30 Gabapentin (Neurontin) 300 mg TID PO Last administered on 04/07/18at 08:24; Start 04/04/18 at 21:00 Losartan Potassium (Cozaar) 25 mg DAILY PO Last administered on 04/07/18at 08: 24; Start 04/05/18 at 09:00 Potassium Chloride (Klor-Con) 20 meq DAILY PO ; Start 04/05/18 at 09:00; Status UNV Non-Formulary Medication (Budesonide/ Formoterol Fumarate (Symbicort 160-4.5 Mcg Inhaler)) 2 puff BID IH ; Start 04/04/18 at 21:00; Status UNV Furosemide (Lasix) 80 mg DAILY PO Last administered on 04/06/18at 08:26; Start 04/05/18 at 09:00; Stop 04/06/18 at 10:07; Status DC Metoprolol Succinate (Toprol Xl) 100 mg DAILY PO Last administered on at 08:24; Start 04/05/18 at 09:00 Albuterol/ Ipratropium (Duoneb) 3 ml RTQID NEB Last administered on 04/07/18at 05:22; Start 04/04/18 at 20:00 Methylprednisolone Sodium Succinate (SOLU-Medrol 40MG VIAL) 40 mg Q8HRS IV Last administered on 04/07/18at 06:21; Start 04/04/18 at 22:00 Potassium Chloride (Klor-Con) 40 meq 1X ONCE PO Last administered on at 17:58; Start 04/04/18 at 17:30; Stop 04/04/18 at 17:37; Status DC Potassium Chloride (Klor-Con) 20 meq TID PO Last administered on 04/07/18at 08: 25; Start 04/04/18 at 21:00 Furosemide (Lasix) 40 mg 1X ONCE IVP Last administered on 04/04/18at 17:58; Start 04/04/18 at 17:45; Stop 04/04/18 at 17:46; Status DC Budesonide (Pulmicort) 0.5 mg RTBID NEB Last administered on 04/06/18at 20:34; Start 04/04/18 at 20:00 Multivitamins/ Calcium (Thera-M Plus) 1 tab DAILY PO Last administered on 04/07at 08:24; Start 04/05/18 at 09:00 Folic Acid (Folic Acid) 1 mg DAILY PO Last administered on 04/07/18at 08:25; Start 04/05/18 at 09:00 Thiamine HCl (Thiamine Im) 100 mg DAILY IM Last administered on 04/06/18at 08: 27; Start 04/05/18 at 09:00; Stop 04/07/18 at 09:02; Status DC Lorazepam (Ativan) 4 mg PRN Q1HR PRN PO For CIWA 8-14; Start 04/04/18 at 18:00 Lorazepam (Ativan) 8 mg PRN Q1HR PRN PO For CIWA 15 or greater; Start at 18:00 Nicotine (Nicoderm Cq 21mg) 1 patch PRN DAILY PRN TD SMOKING CESSATION; Start 04/04/18 at 18:00 Enoxaparin Sodium (Lovenox 150mg Syringe) 150 mg Q12HR SQ Last administered on 04/06/18at 21:23; Start 04/04/18 at 21:00 Furosemide (Lasix) 40 mg BID92 IVP Last administered on 04/07/18at 08:23; Start 04/06/18 at 14:00 Thiamine HCl (Vitamin B-1) 100 mg DAILY PO ; Start 04/07/18 at 09:00; Stop at 09:01 Active Scripts Active Reported Gabapentin (Gabapentin) 300 Mg Capsule 300 Mg PO TID Symbicort 160-4.5 Mcg Inhaler (Budesonide/Formoterol Fumarate) 10.2 Gm Hfa.aer.ad 2 Puff IH BID Cozaar (Losartan Potassium) 25 Mg Tablet 25 Mg PO DAILY Albuterol Sulfate Neb Soln (Albuterol Sulfate) 2.5 Mg/3 Ml Vial.neb 1 Vial NEB PRN Q6HRS PRN Metoprolol Succinate ( Xl ) (Metoprolol Succinate) 100 Mg Tab.er.24h 1 Tab PO DAILY Klor-Con M20 (Potassium Chloride) 20 Meq Tab.er.prt 1 Tab PO DAILY Furosemide 80 Mg Tablet 1 Tab PO DAILY Vitals/I & O Vital Sign - Last 24 Hours 04/06/18 04/06/18 04/06/18 04/06/18 11:23 14:46 15:53 18:31 Pulse 88 78 88 B/P (MAP) 121/63 (82) 121/79 (93) 126/57 (80) Pulse Ox 89 88 88 85 O2 Delivery Nasal Cannula Nasal Cannula Nasal Cannula Nasal Cannula O2 Flow Rate 3.5 3.5 3.5 3.5 04/06/18 04/06/18 04/07/18 04/07/18 19:45 20:35 05:24 05:49 Temp 98.7 Pulse 98 Resp 24 B/P (MAP) 114/68 (83) Pulse Ox 88 89 90 O2 Delivery Nasal Cannula Nasal Cannula Nasal Cannula Nasal Cannula O2 Flow Rate 3.5 4.0 4.0 04/07/1818 04/07/18 08:24 08:24 08:30 Pulse 98 98 B/P (MAP) 114/68 114/68 O2 Delivery Nasal Cannula O2 Flow Rate 3.5 Intake and Output 04/06/18 04/06/18 04/07/18 15:00 23:00 07:00 Intake Total 480 ml Output Total 1240 ml 700 ml Balance -1240 ml -220 ml REGINO LOPEZ [employer] Apr 07, 2018 10:31
[2018-04-07] MEDS: BUDESONIDE 0.5 MG/2 ML NEBU NEB SCH ×2 (10:38→21:05)
[2018-04-07] MEDS: THIAMINE 100 MG TABLET. PO SCH (10:40)
[2018-04-07 10:55] VITALS: BP 136/75
--- NOTE | 2018-04-07 11:24 | RAD ---
EXAM: CHEST 1 VIEW History: Congestive heart failure COMPARISON: 04/04/2018 TECHNIQUE: Single portable radiograph of the chest FINDINGS: Mild cardiomegaly. Mild prominent bilateral interstitial lung markings likely mild congestive changes. The costophrenic sulci are clear and well demarcated. Trace left pleural effusion. IMPRESSION: Mild congestive changes similar to prior exam. Electronically signed by: Juan Daniel Schmitt MD (04/07/2018 11:20 AM) [id number]
--- NOTE | 2018-04-07 11:33 | CARD ---
MR#: [id number] Date of Study: 04/07/2018 Ordering Physician: HILLARY FAY, Referring Physician: JOSLYN VELOZ, Tech: Yessenia Millan APPROVED REPORT EXAM: Two-dimensional and M-mode echocardiogram with Doppler and color Doppler. Other Information Quality : AverageHR: 89bpm INDICATION Congestive Heart Failure 2D DIMENSIONS RVDd4.4 (2.9-3.5cm)Left Atrium(2D)3.7 (1.6-4.0cm) IVSd1.4 (0.7-1.1cm)Aortic Root(2D)3.0 (2.0-3.7cm) LVDd5.2 (3.9-5.9cm)LVOT Diameter2.3 (1.8-2.4cm) PWd1.3 (0.7-1.1cm)LVDs3.5 (2.5-4.0cm) FS (%) 33.6 %SV81.6 ml Aortic Valve AoV Peak Ambrocio.151.2cm/sAoV VTI28.6cm AO Peak GR.9.1mmHgLVOT Peak Ambrocio.136.3cm/s LVOT VTI 25.54cmAO Mean GR.6mmHg THALIA (VMAX)3.25za6NSX (VTI)3.74cm2 Mitral Valve MV E Pmyfudhy54.2cm/sMV DECEL [id number] MV A Piqezszd30.6cm/sE/A Ratio1.5 Pulmonary Valve PV Peak Kwtckacq763.6cm/sPV Peak Grad.4mmHg Tricuspid Valve RAP [id number] Pulmonary Vein S1 Xepxywsl38.2cm/sD2 Umllrdyn53.8cm/s LEFT VENTRICLE The Left Ventricle is borderline dilated. There is mild concentric left ventricular hypertrophy. The left ventricular systolic function is normal and the ejection fraction is within normal range. The Ej ection Fraction is 55-60%. There is normal LV segmental wall motion. Transmitral Doppler flow pattern is normal for age. RIGHT VENTRICLE The right ventricle is mildly dilated. There is normal right ventricular wall thickness. The right ve ntricular systolic function is normal. ATRIA The left atrium size is normal. The right atrium is mildly dilated. The interatrial septum is intact with no evidence for an atrial septal defect or patent foramen ovale as noted on 2-D or Doppler imagi ng. AORTIC VALVE The aortic valve is thickened but opens well. Doppler and Color Flow revealed no significant aortic r egurgitation. There is no significant aortic valvular stenosis. MITRAL VALVE The mitral valve is normal in structure and function. There is no evidence of mitral valve prolapse. There is no mitral valve stenosis. Doppler and Color Flow revealed trace mitral valve regurgitation. TRICUSPID VALVE The tricuspid valve is normal in structure and function. Doppler and Color Flow revealed trace to mil d tricuspid valve regurgitation. There is no tricuspid valve stenosis. PULMONIC VALVE The pulmonary valve is normal in structure and function. Doppler and Color Flow revealed no pulmonic valvular regurgitation. GREAT VESSELS The aortic root is normal in size. Normal pulmonary venous flow (Doppler). The IVC is dilated and col lapses <50%. PERICARDIAL EFFUSION There is no evidence of significant pericardial effusion. Critical Notification Critical Value: No <Conclusion> The Left Ventricle is borderline dilated. The left ventricular systolic function is normal and the ejection fraction is within normal range. The Ejection Fraction is 55-60%. There is mild concentric left ventricular hypertrophy. There is no significant aortic valvular stenosis. Doppler and Color Flow revealed no significant aortic regurgitation. Doppler and Color Flow revealed trace mitral valve regurgitation. Doppler and Color Flow revealed trace to mild tricuspid valve regurgitation. Signed by : Hillary Fay MD Electronically Approved : 04/07/2018 11:32:43
[2018-04-07 15:01] VITALS: BP 127/69
[2018-04-07 18:47] VITALS: BP 124/67
--- NOTE | 2018-04-07 20:18 | PN ---
DATE: 04/07/2018 SUBJECTIVE: The patient is sitting comfortably in his chair, in no apparent distress. He continued to be cyanosed. His oxygen saturation was only 86% on 3.5 liters oxygen by nasal cannula. He is not tolerating BiPAP, but he continued to insist that he wanted his swollen legs to be improved. We did start him on IV Lasix. He lost only about 5 pounds yesterday. OBJECTIVE: GENERAL: When I examined him, he looked definitely cyanosed, but not jaundiced, but no lymphadenopathy, no thyromegaly. No jugular venous distention with marked bilateral lower limb edema. VITAL SIGNS: Her heart rate was 94, blood pressure was 136/75, temperature was 98.7, respiratory rate 20, and oxygen saturation was 88% on 3.5 liters of oxygen. HEAD, EYES, EARS, NOSE AND THROAT: Showed normocephalic, atraumatic. NECK: Supple. HEART: Showed normal first and second heart sounds with no gallop, rub or murmur. CHEST: Clear to auscultation. No crepitation or rhonchi. ABDOMEN: Distended, soft, nontender. NEUROLOGIC: He is awake, alert, responding appropriately. All cranial nerves intact. He moves extremities without difficulty, has marked swelling of both lower extremities. His intake was 480, output was 1940. LABORATORY DATA: This morning showed a serum sodium of 146, potassium 3.8, chloride 99, bicarbonate 44, anion gap of 3, BUN 37, creatinine 1.3, estimated GFR was 56 mL per minute. His glucose was 123, calcium was 8.4. Total bilirubin 1. AST, ALT, alkaline phosphatase normal. Total protein was 6.8, albumin 3.1. His white cell count was 9900, hemoglobin 18.5, hematocrit 59.4, MCV 93, and platelet count of 132,000. DIAGNOSTIC DATA: He apparently has had an echocardiogram done, which showed that his left ventricular size is borderline dilated, left ventricle systolic function is normal and ejection fraction is within normal range. His ejection fraction is 55-60%. There is mild concentric left ventricular hypertrophy. No significant aortic valvular stenosis. There is no significant aortic regurgitation. There was trace mitral valve regurgitation, trace to mild tricuspid valve regurgitation. PLAN: My plan is to continue with IV Lasix twice a day. I will add Zaroxolyn and his mom, ____ will bring his CPAP from home, he will continue with that. I consulted also our patient case manager to look into his insurance to see what he qualifies for as apparently he was not allowed to come to the [facility] before. JOSLYN VELOZ MD DR: SIOMN/abdullahi JOB#: [id number] / [id number]
[2018-04-08] VITALS (7 sets, daily range): BP systolic 108–136; BP diastolic 52–75
[2018-04-08] MEDS: IPRATRPIUM/ALBUTEROL 0.5/2.5MG 3 ML NEBU. NEB SCH ×4 (04:58→20:42)
[2018-04-08] MEDS: methylPREDNISolone SOD SUCC PF 40 MG/ML VIAL. IV SCH ×2 (06:22→18:06)
[2018-04-08] MEDS: metOLazone 2.5 MG TABLET PO SCH (08:35)
[2018-04-08] MEDS: FOLIC ACID 1 MG TABLET PO SCH (08:35)
[2018-04-08] MEDS: MULTIVITAMIN with MINERAL TABLET. PO SCH (08:36)
[2018-04-08] MEDS: LOSARTAN 25 MG TABLET. PO SCH (08:36)
[2018-04-08] MEDS: THIAMINE 100 MG TABLET. PO SCH (08:36)
[2018-04-08] MEDS: GABAPENTIN 300 MG CAPSULE. PO SCH ×3 (08:36→21:22)
[2018-04-08] MEDS: METOPROLOL SUCC 24HR ER 50 MG TAB.ER.24H. PO SCH (08:36)
[2018-04-08] MEDS: POTASSIUM CHLORIDE 20 MEQ TABLET.ER. PO SCH ×3 (08:37→21:22)
[2018-04-08 09:09] LABS: CALCIUM 8.2 mg/dL (8.5-10.1); CREATININE 1.1 mg/dL (0.7-1.3)
[2018-04-08] MEDS: BUDESONIDE 0.5 MG/2 ML NEBU NEB SCH ×2 (10:06→20:42)
[2018-04-08] MEDS: FUROSEMIDE 40 MG/4 ML VIAL IVP SCH ×3 (11:26→21:22)
[2018-04-08] MEDS ORDERED: ALBUMIN HUMAN 25% 50 ML IV ONE (11:30)
--- NOTE | 2018-04-08 15:24 | PDOC ---
PROGRESS NOTES Assessment 1. Acute respiratory failure, multifactorial. remains on oxygen 3.5-4liters by vania Acute exacerbation of COPD per pcp Acute on chronic diastolic heart failure - continued pulmonary vascular congestion by CXR. add albumin and continue IV diuresis. Continue beta janey and ARB. 2. Probable venous insufficiency - suggest outpatient venous reflux study and compression hose, avoidance of sodium and elevate feet when possible 3. Etoh abuse, cessation encouraged 4. tobaccoism - encourage cessation 5. HTN. controlled on current medications. 6. morbid obesity - encourage weight reduction Subjective appears less short of breath, continued swelling, denies chest pain or palpitations. Objective Vital Signs Date Time Temp Pulse Resp B/P (MAP) Pulse Ox O2 Delivery O2 Flow Rate FiO2 04/08/18 13:25 97 20 136/75 (95) 89 Nasal Cannula 3.5 04/08/18 03:00 98.0 Intake and Output 04/08/18 07:00 Intake Total 1910 ml Output Total 3400 ml Balance -1490 ml Intake Oral 1910 ml Output Urine Total 3400 ml Abdomen: Normal bowel sounds, Soft, No tenderness Heart: Normal S1, Normal S2 Extremities: Other (chronic edema, unchanged) HEENT: Atraumatic, EOMI Lungs: Other (decreased without any significant crackles, wheezes or rhonchi) Neuro: Normal speech, Strength at 5/5 X4 ext Psych/Mental Status: Mental status NL, Mood NL Review of Relevant I have reviewed the following items mari (where applicable) has been applied. Labs Laboratory Tests Test 04/06/18 18:55 04/07/18 05:43 04/08/18 08:53 White Blood Count 10.8 x10^3/uL (4.0-11.0) 9.9 x10^3/uL (4.0-11.0) Red Blood Count 6.41 x10^6/uL (4.30-5.70) 6.39 x10^6/uL (4.30-5.70) Hemoglobin 18.3 g/dL (13.0-17.5) 18.5 g/dL (13.0-17.5) Hematocrit 59.4 % (39.0-53.0) 59.4 % (39.0-53.0) Mean Corpuscular Volume 93 fL (79-100) 93 fL (79-100) Mean Corpuscular Hemoglobin 29 pg (25-35) 29 pg (25-35) Mean Corpuscular Hemoglobin Concent 31 g/dL (31-37) 31 g/dL (31-37) Red Cell Distribution Width 17.0 % (11.5-14.5) 17.0 % (11.5-14.5) Platelet Count 135 x10^3/uL (140-400) 132 x10^3/uL (140-400) Neutrophils (%) (Auto) 89 % (31-73) Lymphocytes (%) (Auto) 6 % (24-48) Monocytes (%) (Auto) 5 % (0-9) Eosinophils (%) (Auto) 0 % (0-3) Basophils (%) (Auto) 0 % (0-3) Neutrophils # (Auto) 8.8 x10^3uL (1.8-7.7) Lymphocytes # (Auto) 0.6 x10^3/uL (1.0-4.8) Monocytes # (Auto) 0.5 x10^3/uL (0.0-1.1) Eosinophils # (Auto) 0.0 x10^3/uL (0.0-0.7) Basophils # (Auto) 0.0 x10^3/uL (0.0-0.2) Sodium Level 146 mmol/L (136-145) 146 mmol/L (136-145) Potassium Level 3.8 mmol/L (3.5-5.1) 4.0 mmol/L (3.5-5.1) Chloride Level 99 mmol/L (98-107) 101 mmol/L (98-107) Carbon Dioxide Level 44 mmol/L (21-32) 43 mmol/L (21-32) Anion Gap 3 (6-14) 2 (6-14) Blood Urea Nitrogen 37 mg/dL (8-26) 25 mg/dL (8-26) Creatinine 1.3 mg/dL (0.7-1.3) 1.1 mg/dL (0.7-1.3) Estimated GFR (Cockcroft-Gault) 56.9 69.0 BUN/Creatinine Ratio 28 (6-20) Glucose Level 123 mg/dL (70-99) 100 mg/dL (70-99) Calcium Level 8.4 mg/dL (8.5-10.1) 8.2 mg/dL (8.5-10.1) Total Bilirubin 1.0 mg/dL (0.2-1.0) Aspartate Amino Transf (AST/SGOT) 25 U/L (15-37) Alanine Aminotransferase (ALT/SGPT) 33 U/L (16-63) Alkaline Phosphatase 51 U/L (46-116) Total Protein 6.8 g/dL (6.4-8.2) Albumin 3.1 g/dL (3.4-5.0) Albumin/Globulin Ratio 0.8 (1.0-1.7) Medications Current Medications Albuterol Sulfate (Ventolin) 2.5 mg PRN Q6HRS PRN NEB SHORTNESS OF BREATH; Start 04/04/18 at 17:30 Gabapentin (Neurontin) 300 mg TID PO Last administered on 04/08/18 08:36; Start 04/04/18 at 21:00 Losartan Potassium (Cozaar) 25 mg DAILY PO Last administered on 04/08/18at 08: 36; Start 04/05/18 at 09:00 Potassium Chloride (Klor-Con) 20 meq DAILY PO ; Start 04/05/18 at 09:00; Status UNV Non-Formulary Medication (Budesonide/ Formoterol Fumarate (Symbicort 160-4.5 Mcg Inhaler)) 2 puff BID IH ; Start 04/04/18 at 21:00; Status UNV Furosemide (Lasix) 80 mg DAILY PO Last administered on 04/06/18at 08:26; Start 04/05/18 at 09:00; Stop 04/06/18 at 10:07; Status DC Metoprolol Succinate (Toprol Xl) 100 mg DAILY PO Last administered on at 08:36; Start 04/05/18 at 09:00 Albuterol/ Ipratropium (Duoneb) 3 ml RTQID NEB Last administered on 04/08/18at 10:05; Start 04/04/18 at 20:00 Methylprednisolone Sodium Succinate (SOLU-Medrol 40MG VIAL) 40 mg Q8HRS IV Last administered on 04/07/18at 06:21; Start 04/04/18 at 22:00; Stop 04/07/18 at 13:58; Status DC Potassium Chloride (Klor-Con) 40 meq 1X ONCE PO Last administered on at 17:58; Start 04/04/18 at 17:30; Stop 04/04/18 at 17:37; Status DC Potassium Chloride (Klor-Con) 20 meq TID PO Last administered on 04/08/18at 08: 37; Start 04/04/18 at 21:00 Furosemide (Lasix) 40 mg 1X ONCE IVP Last administered on 04/04/18at 17:58; Start 04/04/18 at 17:45; Stop 04/04/18 at 17:46; Status DC Budesonide (Pulmicort) 0.5 mg RTBID NEB Last administered on 04/08/18at 10:06; Start 04/04/18 at 20:00 Multivitamins/ Calcium (Thera-M Plus) 1 tab DAILY PO Last administered on 04/08at 08:36; Start 04/05/18 at 09:00 Folic Acid (Folic Acid) 1 mg DAILY PO Last administered on 04/08/18at 08:35; Start 04/05/18 at 09:00 Thiamine HCl (Thiamine Im) 100 mg DAILY IM Last administered on 04/06/18at 08: 27; Start 04/05/18 at 09:00; Stop 04/07/18 at 09:02; Status DC Lorazepam (Ativan) 4 mg PRN Q1HR PRN PO For CIWA 8-14; Start 04/04/18 at 18:00 Lorazepam (Ativan) 8 mg PRN Q1HR PRN PO For CIWA 15 or greater; Start at 18:00 Nicotine (Nicoderm Cq 21mg) 1 patch PRN DAILY PRN TD SMOKING CESSATION; Start 04/04/18 at 18:00 Enoxaparin Sodium (Lovenox 150mg Syringe) 150 mg Q12HR SQ Last administered on 04/06/18at 21:23; Start 04/04/18 at 21:00; Stop 04/07/18 at 19:01; Status DC Furosemide (Lasix) 40 mg BID92 IVP Last administered on 04/08/18at 11:26; Start 04/06/18 at 14:00; Stop 04/08/18 at 13:37; Status DC Thiamine HCl (Vitamin B-1) 100 mg DAILY PO Last administered on 04/08/18at 08: 36; Start 04/07/18 at 09:00; Stop 04/09/18 at 09:01 Metolazone (Zaroxolyn) 2.5 mg DAILY PO Last administered on 04/08/18at 08:35; Start 04/08/18 at 09:00 Methylprednisolone Sodium Succinate (SOLU-Medrol 40MG VIAL) 40 mg Q12H IV Last administered on 04/08/18at 06:22; Start 04/07/18 at 18:00 Albumin Human 50 ml @ 50 mls/hr 1X ONCE IV Last administered on 04/08/18at 11: 27; Start 04/08/18 at 11:30; Stop 04/08/18 at 12:29; Status DC Furosemide (Lasix) 40 mg TID IVP ; Start 04/08/18 at 14:00 Albumin Human 50 ml @ 50 mls/hr TID IV ; Start 04/08/18 at 14:00 Active Scripts Active Reported Gabapentin (Gabapentin) 300 Mg Capsule 300 Mg PO TID Symbicort 160-4.5 Mcg Inhaler (Budesonide/Formoterol Fumarate) 10.2 Gm Hfa.aer.ad 2 Puff IH BID Cozaar (Losartan Potassium) 25 Mg Tablet 25 Mg PO DAILY Albuterol Sulfate Neb Soln (Albuterol Sulfate) 2.5 Mg/3 Ml Vial.neb 1 Vial NEB PRN Q6HRS PRN Metoprolol Succinate ( Xl ) (Metoprolol Succinate) 100 Mg Tab.er.24h 1 Tab PO DAILY Klor-Con M20 (Potassium Chloride) 20 Meq Tab.er.prt 1 Tab PO DAILY Furosemide 80 Mg Tablet 1 Tab PO DAILY Vitals/I & O Vital Sign - Last 24 Hours 04/07/18 04/07/18 04/07/18 04/07/18 16:22 18:47 21:07 21:12 Temp 98.0 Pulse 87 Resp 18 B/P (MAP) 124/67 (86) Pulse Ox 93 88 93 93 O2 Delivery Nasal Cannula Nasal Cannula Nasal Cannula Nasal Cannula O2 Flow Rate 4.0 3.5 4.0 4.0 04/08/18 04/08/18 04/08/18 04/08/18 00:26 03:00 04:59 08:36 Temp 98.0 98.0 Pulse 80 90 90 Resp 22 24 B/P (MAP) 108/52 (70) 129/62 (84) 129/62 Pulse Ox 86 84 94 O2 Delivery Nasal Cannula Nasal Cannula Nasal Cannula O2 Flow Rate 3.0 3.5 4.0 04/08/18 04/08/18 04/08/18 04/08/18 08:36 10:05 10:06 10:06 Pulse 100 98 Resp 18 B/P (MAP) 129/62 109/61 (77) Pulse Ox 89 86 86 O2 Delivery Nasal Cannula Nasal Cannula Nasal Cannula O2 Flow Rate 3.5 4.0 4.0 04/08/18 13:25 Pulse 97 Resp 20 B/P (MAP) 136/75 (95) Pulse Ox 89 O2 Delivery Nasal Cannula O2 Flow Rate 3.5 Intake and Output 04/07/18 04/07/18 04/08/18 15:00 23:00 07:00 Intake Total 300 ml 650 ml 960 ml Output Total 300 ml 1300 ml 1800 ml Balance 0 ml -650 ml -840 ml REGINO LOPEZ [employer] Apr 08, 2018 15:24
[2018-04-08] MEDS: ALBUMIN HUMAN 25% 50 ML IV SCH ×2 (15:50→21:41)
--- NOTE | 2018-04-08 23:46 | PN ---
DATE: 04/08/2018 SUBJECTIVE: The patient is resting, slightly propped up, sleeping comfortably, in no apparent distress. He is apparently on CPAP at nighttime and he is on 3.5 liters of oxygen, maintaining his oxygen saturation about 88%. He was started on human albumin, metolazone as well as Lasix IV. OBJECTIVE: GENERAL: When I saw him today, he looked well and was clearly in no apparent respiratory distress. No pallor, jaundice, cyanosis, or thyromegaly. No jugular venous distension. No lower limb edema. VITAL SIGNS: His heart rate was 97, blood pressure 136/75, temperature was 98, respiratory rate 20, and oxygen saturation was 89% on 3.5 liters of oxygen. HEAD, EYES, EARS, NOSE AND THROAT: Showed normocephalic, atraumatic. NECK: Supple. HEART: Showed normal first and second sounds. No gallop, rub or murmur. CHEST: Clear to auscultation. No crepitation or rhonchi. ABDOMEN: Distended, soft, nontender with periumbilical hernia that is easily reducible. NEUROLOGIC: He is awake, alert, responding appropriately. All cranial nerves intact. EXTREMITIES: He moves extremities without difficulty. He ambulates without assistance or assistive devices. His intake over the last 24-hour was 1900, output was 3400. LABORATORY DATA: Yesterday, his white cell count 9900, hemoglobin 18.5, hematocrit 59, MCV 93, and platelet count of 132,000. His chemistry showed serum sodium of 146, potassium 4, chloride 101, bicarbonate 43, anion gap of 2, BUN 25, creatinine 1.1, estimated GFR was 69 mL per minute, his glucose was 100, calcium was 8.2. ASSESSMENT: 1. Acute on chronic hypoxic hypercapnic respiratory failure. The patient unfortunately refused to use his CPAP. 2. Acute on chronic heart failure, probably diastolic, however, in the setting of heavy alcohol use, he might have also systolic component. The patient drinks between 1 and 18 beers a day. 3. Hypertension, seems well controlled. 4. Hypokalemia for which he is getting potassium 3 times a day. PLAN: My plan is to continue with ____ human albumin. Continue with IV Lasix, metolazone and weigh him daily. JOSLYN VELOZ MD DR: Edgar JOB#: [id number] / [id number]
[2018-04-09 01:01] LABS: BGAS PH 7.4 (7.35-7.46)
[2018-04-09 04:17] VITALS: BP 140/78
[2018-04-09] MEDS: IPRATRPIUM/ALBUTEROL 0.5/2.5MG 3 ML NEBU. NEB SCH ×2 (05:23→09:54)
[2018-04-09] MEDS: methylPREDNISolone SOD SUCC PF 40 MG/ML VIAL. IV SCH (05:37)
[2018-04-09 05:52] LABS: BASO % 0 % (0-3); EOS % 0 % (0-3); HEMATOCRIT 58.4 % (39.0-53.0); HEMOGLOBIN 18.7 g/dL (13.0-17.5); LYMPH # 1.2 x10^3/uL (1.0-4.8); LYMPH % 13 % (24-48); MEAN CORPUSCULAR HEMOGLOBIN 29 pg (25-35); MEAN CORPUSCULAR HGB CONC 32 g/dL (31-37); MEAN CORPUSCULAR VOLUME 92 fL (79-100); MONO # 0.7 x10^3/uL (0.0-1.1); MONO % 7 % (0-9); NEUT # 7.7 x10^3uL (1.8-7.7); NEUT % 79 % (31-73); PLATELET COUNT 109 x10^3/uL (140-400); RED BLOOD COUNT 6.38 x10^6/uL (4.30-5.70); RED CELL DISTRIBUTION WIDTH 16.7 % (11.5-14.5); WHITE BLOOD COUNT 9.8 x10^3/uL (4.0-11.0)
[2018-04-09 06:10] LABS: ALBUMIN 3.2 g/dL (3.4-5.0); CALCIUM 8.5 mg/dL (8.5-10.1); CREATININE 1.2 mg/dL (0.7-1.3); GFR 62.4; POTASSIUM 3.7 mmol/L (3.5-5.1); TOTAL BILIRUBIN 1.5 mg/dL (0.2-1.0); TOTAL PROTEIN 6.4 g/dL (6.4-8.2)
[2018-04-09 06:19] VITALS: BP 123/75
[2018-04-09] MEDS: MULTIVITAMIN with MINERAL TABLET. PO SCH (08:39)
[2018-04-09] MEDS: POTASSIUM CHLORIDE 20 MEQ TABLET.ER. PO SCH ×2 (08:39→15:00)
[2018-04-09] MEDS: METOPROLOL SUCC 24HR ER 50 MG TAB.ER.24H. PO SCH (08:39)
[2018-04-09] MEDS: LOSARTAN 25 MG TABLET. PO SCH (08:39)
[2018-04-09] MEDS: FOLIC ACID 1 MG TABLET PO SCH (08:39)
[2018-04-09] MEDS: THIAMINE 100 MG TABLET. PO SCH (08:39)
[2018-04-09] MEDS: GABAPENTIN 300 MG CAPSULE. PO SCH ×2 (08:39→14:59)
[2018-04-09] MEDS: metOLazone 2.5 MG TABLET PO SCH (08:39)
[2018-04-09] MEDS: FUROSEMIDE 40 MG/4 ML VIAL IVP SCH ×2 (09:00→10:28)
--- NOTE | 2018-04-09 09:25 | PDOC ---
PROGRESS NOTES Assessment 1. Acute hypoxic, hypercapnic respiratory failure, multifactorial. remains on oxygen 4 liters by co with SaO2 at 89%. Acute exacerbation of COPD per pcp Acute on chronic diastolic heart failure - continued albumin and continue IV diuresis. Check venous duplex and CT chest. 2. Probable venous insufficiency - suggest outpatient venous reflux study and compression hose, avoidance of sodium and elevate feet when possible 3. Etoh abuse, cessation encouraged 4. tobaccoism - encourage cessation 5. HTN. controlled on current medications. Hold metoprolol, increase losartan and add hydralazine. 6. morbid obesity - encourage weight reduction Will continue diuresis, check CT, if no definite issues, consider pulmonary consult. Subjective hypoxic episode last night requiring BiPap. No definite precipitating event. Better this am but remains on 4 liters oxygen with 89% sats. he reports edema is slightly better. Objective Vital Signs Date Time Temp Pulse Resp B/P (MAP) Pulse Ox O2 Delivery O2 Flow Rate FiO2 04/09/18 08:39 77 123/75 04/09/18 06:19 97.7 24 94 BiPAP/CPAP 04/08/18 22:42 3.5 Intake and Output 04/09/18 07:00 Intake Total 1250 ml Output Total 2750 ml Balance -1500 ml Intake Oral 1200 ml IV Total 50 ml Output Urine Total 2750 ml # Voids 1 Abdomen: Normal bowel sounds, No tenderness Heart: Normal S1, Normal S2 Extremities: Other (edema unchanged) General: Alert, Oriented X3, Cooperative, No acute distress Lungs: Other (decreased bilaterallw) Neuro: Normal speech Psych/Mental Status: Mental status NL, Mood NL Review of Relevant I have reviewed the following items mari (where applicable) has been applied. Labs Laboratory Tests Test 04/08/18 08:53 04/09/18 00:45 04/09/18 05:37 Sodium Level 146 mmol/L (136-145) 143 mmol/L (136-145) Potassium Level 4.0 mmol/L (3.5-5.1) 3.7 mmol/L (3.5-5.1) Chloride Level 101 mmol/L (98-107) 93 mmol/L (98-107) Carbon Dioxide Level 43 mmol/L (21-32) 49 mmol/L (21-32) Anion Gap 2 (6-14) 1 (6-14) Blood Urea Nitrogen 25 mg/dL (8-26) 23 mg/dL (8-26) Creatinine 1.1 mg/dL (0.7-1.3) 1.2 mg/dL (0.7-1.3) Estimated GFR (Cockcroft-Gault) 69.0 62.4 Glucose Level 100 mg/dL (70-99) 101 mg/dL (70-99) Calcium Level 8.2 mg/dL (8.5-10.1) 8.5 mg/dL (8.5-10.1) Blood Gas pH 7.40 (7.35-7.46) Blood Gas PCO2 82 mmHg (35-46) Blood Gas PO2 51 mmHg (80-100) Blood Gas HCO3 51 mmol/L (21-28) Arterial Bld O2 Saturation (Calc) 82 % (92-99) FiO2 40 % White Blood Count 9.8 x10^3/uL (4.0-11.0) Red Blood Count 6.38 x10^6/uL (4.30-5.70) Hemoglobin 18.7 g/dL (13.0-17.5) Hematocrit 58.4 % (39.0-53.0) Mean Corpuscular Volume 92 fL (79-100) Mean Corpuscular Hemoglobin 29 pg (25-35) Mean Corpuscular Hemoglobin Concent 32 g/dL (31-37) Red Cell Distribution Width 16.7 % (11.5-14.5) Platelet Count 109 x10^3/uL (140-400) Neutrophils (%) (Auto) 79 % (31-73) Lymphocytes (%) (Auto) 13 % (24-48) Monocytes (%) (Auto) 7 % (0-9) Eosinophils (%) (Auto) 0 % (0-3) Basophils (%) (Auto) 0 % (0-3) Neutrophils # (Auto) 7.7 x10^3uL (1.8-7.7) Lymphocytes # (Auto) 1.2 x10^3/uL (1.0-4.8) Monocytes # (Auto) 0.7 x10^3/uL (0.0-1.1) Eosinophils # (Auto) 0.0 x10^3/uL (0.0-0.7) Basophils # (Auto) 0.0 x10^3/uL (0.0-0.2) BUN/Creatinine Ratio 19 (6-20) Total Bilirubin 1.5 mg/dL (0.2-1.0) Aspartate Amino Transf (AST/SGOT) 28 U/L (15-37) Alanine Aminotransferase (ALT/SGPT) 47 U/L (16-63) Alkaline Phosphatase 47 U/L (46-116) Total Protein 6.4 g/dL (6.4-8.2) Albumin 3.2 g/dL (3.4-5.0) Albumin/Globulin Ratio 1.0 (1.0-1.7) Medications Current Medications Albuterol Sulfate (Ventolin) 2.5 mg PRN Q6HRS PRN NEB SHORTNESS OF BREATH; Start 04/04/18 at 17:30 Gabapentin (Neurontin) 300 mg TID PO Last administered on 04/09/18at 08:39; Start 04/04/18 at 21:00 Losartan Potassium (Cozaar) 25 mg DAILY PO Last administered on 04/09/18at 08: 39; Start 04/05/18 at 09:00 Potassium Chloride (Klor-Con) 20 meq DAILY PO ; Start 04/05/18 at 09:00; Status UNV Non-Formulary Medication (Budesonide/ Formoterol Fumarate (Symbicort 160-4.5 Mcg Inhaler)) 2 puff BID IH ; Start 04/04/18 at 21:00; Status UNV Furosemide (Lasix) 80 mg DAILY PO Last administered on 04/06/18at 08:26; Start 04/05/18 at 09:00; Stop 04/06/18 at 10:07; Status DC Metoprolol Succinate (Toprol Xl) 100 mg DAILY PO Last administered on at 08:39; Start 04/05/18 at 09:00 Albuterol/ Ipratropium (Duoneb) 3 ml RTQID NEB Last administered on 04/09/18at 05:23; Start 04/04/18 at 20:00 Methylprednisolone Sodium Succinate (SOLU-Medrol 40MG VIAL) 40 mg Q8HRS IV Last administered on 04/07/18at 06:21; Start 04/04/18 at 22:00; Stop 04/07/18 at 13:58; Status DC Potassium Chloride (Klor-Con) 40 meq 1X ONCE PO Last administered on at 17:58; Start 04/04/18 at 17:30; Stop 04/04/18 at 17:37; Status DC Potassium Chloride (Klor-Con) 20 meq TID PO Last administered on 04/09/18at 08: 39; Start 04/04/18 at 21:00 Furosemide (Lasix) 40 mg 1X ONCE IVP Last administered on 04/04/18at 17:58; Start 04/04/18 at 17:45; Stop 04/04/18 at 17:46; Status DC Budesonide (Pulmicort) 0.5 mg RTBID NEB Last administered on 04/08/18at 20:42; Start 04/04/18 at 20:00 Multivitamins/ Calcium (Thera-M Plus) 1 tab DAILY PO Last administered on 04/09at 08:39; Start 04/05/18 at 09:00 Folic Acid (Folic Acid) 1 mg DAILY PO Last administered on 04/09/18at 08:39; Start 04/05/18 at 09:00 Thiamine HCl (Thiamine Im) 100 mg DAILY IM Last administered on 04/06/18at 08: 27; Start 04/05/18 at 09:00; Stop 04/07/18 at 09:02; Status DC Lorazepam (Ativan) 4 mg PRN Q1HR PRN PO For CIWA 8-14; Start 04/04/18 at 18:00 Lorazepam (Ativan) 8 mg PRN Q1HR PRN PO For CIWA 15 or greater; Start at 18:00 Nicotine (Nicoderm Cq 21mg) 1 patch PRN DAILY PRN TD SMOKING CESSATION; Start 04/04/18 at 18:00 Enoxaparin Sodium (Lovenox 150mg Syringe) 150 mg Q12HR SQ Last administered on 04/06/18at 21:23; Start 04/04/18 at 21:00; Stop 04/07/18 at 19:01; Status DC Furosemide (Lasix) 40 mg BID92 IVP Last administered on 04/08/18at 11:26; Start 04/06/18 at 14:00; Stop 04/08/18 at 13:37; Status DC Thiamine HCl (Vitamin B-1) 100 mg DAILY PO Last administered on 04/09/18at 08: 39; Start 04/07/18 at 09:00; Stop 04/09/18 at 09:02; Status DC Metolazone (Zaroxolyn) 2.5 mg DAILY PO Last administered on 04/09/18at 08:39; Start 04/08/18 at 09:00 Methylprednisolone Sodium Succinate (SOLU-Medrol 40MG VIAL) 40 mg Q12H IV Last administered on 04/09/18at 05:37; Start 04/07/18 at 18:00 Albumin Human 50 ml @ 50 mls/hr 1X ONCE IV Last administered on 04/08/18at 11: 27; Start 04/08/18 at 11:30; Stop 04/08/18 at 12:29; Status DC Furosemide (Lasix) 40 mg TID IVP Last administered on 04/08/18at 21:22; Start 04/08/18 at 14:00 Albumin Human 50 ml @ 50 mls/hr TID IV Last administered on 04/08/18at 21:41; Start 04/08/18 at 14:00 Active Scripts Active Reported Gabapentin (Gabapentin) 300 Mg Capsule 300 Mg PO TID Symbicort 160-4.5 Mcg Inhaler (Budesonide/Formoterol Fumarate) 10.2 Gm Hfa.aer.ad 2 Puff IH BID Cozaar (Losartan Potassium) 25 Mg Tablet 25 Mg PO DAILY Albuterol Sulfate Neb Soln (Albuterol Sulfate) 2.5 Mg/3 Ml Vial.neb 1 Vial NEB PRN Q6HRS PRN Metoprolol Succinate ( Xl ) (Metoprolol Succinate) 100 Mg Tab.er.24h 1 Tab PO DAILY Klor-Con M20 (Potassium Chloride) 20 Meq Tab.er.prt 1 Tab PO DAILY Furosemide 80 Mg Tablet 1 Tab PO DAILY Vitals/I & O Vital Sign - Last 24 Hours 04/08/18 04/08/18 04/08/18 04/08/18 10:05 10:06 10:06 13:25 Pulse 98 97 Resp 18 20 B/P (MAP) 109/61 (77) 136/75 (95) Pulse Ox 89 86 86 89 O2 Delivery Nasal Cannula Nasal Cannula Nasal Cannula Nasal Cannula O2 Flow Rate 3.5 4.0 4.0 3.5 1204/08/18 04/08/18 04/08/18 17:05 18:56 20:34 20:42 Temp 98.8 Pulse 89 Resp 22 B/P (MAP) 116/63 (80) Pulse Ox 91 90 87 O2 Delivery Nasal Cannula Nasal Cannula Nasal Cannula Nasal Cannula O2 Flow Rate 4.0 3.5 3.5 3.5 04/08/18 04/08/18 04/08/18 04/09/18 20:47 21:20 22:42 01:15 Temp 98.3 Pulse 72 Resp 22 B/P (MAP) 117/64 (81) 111/60 (77) Pulse Ox 87 89 91 O2 Delivery Nasal Cannula Nasal Cannula Nasal Cannula BiPAP/CPAP O2 Flow Rate 3.5 3.5 3.5 04/09/18 04/09/18 04/09/18 04/09/18 03:16 04:17 05:23 06:19 Temp 98.2 97.7 Pulse 89 78 77 Resp 24 22 24 B/P (MAP) 140/78 (98) 123/75 (91) Pulse Ox 95 93 93 94 O2 Delivery BiPAP/CPAP BiPAP/CPAP BiPAP/CPAP BiPAP/CPAP 04/09/18 04/09/18 08:39 08:39 Pulse 77 77 B/P (MAP) 123/75 123/75 Intake and Output 04/08/18 04/08/18 04/09/18 15:00 23:00 07:00 Intake Total 600 ml 650 ml Output Total 1300 ml 1450 ml Balance -700 ml -800 ml REGINO LOPEZ APRN Apr 09, 2018 09:25
[2018-04-09] MEDS ORDERED: IOHEXOL 350 MG/ML 100 ML VIAL. IV ONE (09:30)
[2018-04-09] MEDS: BUDESONIDE 0.5 MG/2 ML NEBU NEB SCH (09:55)
[2018-04-09] MEDS: ALBUMIN HUMAN 25% 50 ML IV SCH (10:28)
[2018-04-09 10:38] VITALS: BP 141/68
--- NOTE | 2018-04-09 11:08 | RAD ---
CT ANGIOGRAPHY CHEST Indication: DYSPNEA, ELEVATED D-DIMER, 100MLS OMNI 350 IV CONTRAST . Comparison: No comparison is available. Technique: After intravenous contrast administration, CT imaging was performed of the chest. MIP reconstructions were obtained. Exposure: One or more of the following individualized dose reduction techniques were utilized for this examination: 1. Automated exposure control 2. Adjustment of the mA and/or kV according to patient size 3. Use of iterative reconstruction technique. FINDINGS: Pulmonary arteries:No evidence of pulmonary embolism. Thoracic aorta: Mild pulsatility artifact ascending aorta. No descending aortic dissection. No aortic aneurysm. Mild calcification. Thyroid gland:Visualized aspect is unremarkable. Lymph nodes: Mild lymphoid tissue identified in the bilateral hellen, no significant lymph node enlargement. Heart: Trace pericardial effusion. Esophagus: Unremarkable Pleural spaces: No significant effusion Lungs: Infiltrate identified in both lower lobes, right greater than left. Trachea and central airways: Patent Bones: Mild degenerative spondylosis. Upper abdomen: Slices through the upper abdomen are limited due to the technique .No obvious acute findings. IMPRESSION: 1. Negative for pulmonary embolism. 2. Lower lobe infiltrates or pneumonia bilaterally. Electronically signed by: Lei Reid MD (04/09/2018 11:05 AM) [facility]
[2018-04-09] MEDS ORDERED: VANCOMYCIN PER PHARMACY MC PRN (13:15)
[2018-04-09] MEDS ORDERED: PIPERACILLIN/TAZOBACTAM 3.375 GM in IV NORMAL SALINE 50ML 50 ML IV ONE (13:30)
[2018-04-09] MEDS ORDERED: VANCOMYCIN 2 GM in IV NORMAL SALINE 500ML 500 ML IV ONE (14:00)
--- NOTE | 2018-04-09 14:49 | DS ---
DATE OF DISCHARGE: 04/09/2018 HOSPITAL COURSE: The patient is a 57-year-old male patient who was admitted through the Emergency Room to [facility] with increasing pain and swelling of both lower extremities, weight gain. He stated that he gained about 60 pounds over the last year and about 7 pounds over the last week. He also complained of shortness of breath, but denied any chest pain. Did complain of orthopnea and paroxysmal nocturnal dyspnea. His blood gases showed that he has acute hypoxic hypercapnic respiratory failure. His pH was 7.31, pCO2 of 80, pO2 of 65, bicarbonate 41, and oxygen saturation was 89%. He refused to continue on BiPAP machine. We did start him with IV Lasix and we added also human albumin and metolazone. Last night, he desaturated with pO2 with oxygen saturation down to 82% and therefore, he was put on BiPAP machine. As we increase his Lasix, his kidney function if anything has improved and because of the worsening hypoxemia, we did actually CT scan of the chest with PE protocol, which showed no evidence of pulmonary emboli. He has bilateral lung infiltrate, as he finally agreed to go to the [facility]. A decision was made in consultation with the ocean fishing guide to discharge him to transfer him to [facility] to consult with the Cardiology and the lead cytogenetic technologist to optimize his treatment. PHYSICAL EXAMINATION: GENERAL: When I saw him today, he was sitting comfortably in his chair, in no apparent respiratory distress. He was if anything plethoric. There is no jaundice, cyanosis or thyromegaly. No jugular venous distension, but has mild bilateral lower limb edema. VITAL SIGNS: His heart rate was 88, blood pressure 141/68, temperature was 98.7, respiratory rate 22 and oxygen saturation was 90% on 4 liters of oxygen. HEAD, EYES, EARS, NOSE AND THROAT: Normocephalic, atraumatic. NECK: Supple. HEART: Showed normal first and second sounds. No gallop, rub or murmur. CHEST: Shows central trachea, equally reduced expansion, reduced air entry, vesicular sounds. No crepitation or rhonchi. ABDOMEN: Distended, soft, nontender. NEUROLOGIC: He was awake, alert, responding appropriately. All cranial nerves intact. EXTREMITIES: He moves extremities without difficulty. He ambulates without assistance or assistive devices. His intake over the last 24-hour was 1900, output was 3400. LABORATORY AND DIAGNOSTIC DATA: As of this morning showed a pH of 7.40, pCO2 of 82, pO2 51, bicarbonate 51, and oxygen saturation was 82% on FiO2 of 40%. His white cell count was 9800, hemoglobin 18.7, hematocrit 58.4, MCV 92, and platelet count of 109,000. His chemistry showed a serum sodium 143, potassium 3.7, chloride 93, bicarbonate 49, anion gap of 11, BUN 23, creatinine was 1.2, estimated GFR was 62 mL per minute. His glucose was 101, calcium was 8.5. Total bilirubin is 1.5. AST, ALT, alkaline phosphatase were normal. Total protein was 6.4, albumin 3.2. His serum triglycerides were 99, total cholesterol 138, LDL cholesterol was 93, VLDL was 19, HDL cholesterol was 26 and the ratio was 5. His prothrombin time was 12.8, INR 1.3. Urinalysis was unremarkable. His CT scan of the chest with PE protocol showed that the scan was negative for pulmonary embolism; however, he has lower lobe infiltrate or pneumonia bilaterally. DISCHARGE MEDICATIONS: The patient will be transferred to [facility] to continue on vancomycin as per pharmacy recommendation. Zosyn 3.375 grams IV q.8 hourly, human albumin IV 3 times a day, furosemide 40 mg IV 3 times a day, metolazone 2.5 mg daily. He is on methylprednisolone, sodium succinate 40 mg IV q.12 hourly, folic acid 1 mg once a day, multivitamin 1 tablet once a day, metoprolol 100 mg once a day, losartan potassium 25 mg daily, potassium chloride 20 mEq 3 times a day, gabapentin 300 mg 3 times a day, budesonide 0.5 mg twice a day, and DuoNeb 4 times a day. He was actually on alcohol withdrawal protocol that was discontinued. FINAL DISCHARGE DIAGNOSES: 1. Acute on chronic hypoxic hypercapnic respiratory failure, slightly better. The patient actually now agreed to go on BiPAP machine. 2. Acute on chronic heart failure, probably mixed diastolic and systolic given the heavy alcohol use. The patient has been drinking between 1 and 18 beers a day. 3. Hypertension, seems to be well controlled. 4. Hypokalemia for which he is on potassium. 5. Morbid obesity, probably with obesity, hypoventilation, obstructive sleep apnea. PLAN: To continue to transfer to [facility] to consult the lead cytogenetic technologist as well as the ocean fishing guide to optimize his medical treatment. JOSLYN VELOZ MD DR: SIMON/abdullahi JOB#: [id number] / [id number]
[2018-04-09 15:30] VITALS: BP 105/57
[2018-04-09 15:52] VITALS: BP 105/57
== END 2018-04-09 15:54 | disposition short-term general hospital (02) | DRG 291 ==
LOC: 1 SOUTH 15:44 → ICU 19:05
PROVIDERS: ADMIT Internal Medicine; ATTEND Internal Medicine
PROC: 5A09357 Assistance with Respiratory Ventilation, Less than 24 Consecutive Hours, Continuous Positive Airway Pressure (ICD-10-PCS; principal; 2018-04-04)
PROC: 5A09357 Assistance with Respiratory Ventilation, Less than 24 Consecutive Hours, Continuous Positive Airway Pressure (ICD-10-PCS; 2018-04-09)
DX: I11.0 Hypertensive heart disease with heart failure (principal); J96.21 Acute and chronic respiratory failure with hypoxia; J96.22 Acute and chronic respiratory failure with hypercapnia; J44.1 Chronic obstructive pulmonary disease with (acute) exacerbation; E66.01 Morbid (severe) obesity due to excess calories; I50.43 Acute on chronic combined systolic (congestive) and diastolic (congestive) heart failure; G47.33 Obstructive sleep apnea (adult) (pediatric); F10.10 Alcohol abuse, uncomplicated; K21.9 Gastro-esophageal reflux disease without esophagitis; M19.90 Unspecified osteoarthritis, unspecified site; E87.6 Hypokalemia; F17.210 Nicotine dependence, cigarettes, uncomplicated; Z80.0 Family history of malignant neoplasm of digestive organs; Z79.899 Other long term (current) drug therapy; Z71.41 Alcohol abuse counseling and surveillance of alcoholic; Z82.49 Family history of ischemic heart disease and other diseases of the circulatory system; Z85.820 Personal history of malignant melanoma of skin; Z68.39 Body mass index [BMI] 39.0-39.9, adult
CPT/HCPCS: 36415; 36600; 71045; 71275; 74176; 80048; 80053; 80061; 80076; 81001; 82803; 83735; 85025; 85027; 85610; 87040; 87641; 93005; 93306; 94640; 94660; J1650; J1940; J2543; J2920; J3370; J7040; J7620; J7626; P9046; Q9967

== ENCOUNTER 2020-09-28 15:07 | Emergency (ER) | payer OTHER ==
[~2020-09-28] VITALS: Ht 185.4 cm; Wt 136.3 kg
[~2020-09-28 15:07] MED LIST: ALBU2.5V5 NEB; BUDE10.2 IH; FURO80TA3 PO; GABA-586 PO; LOSA25TA PO; METO-247 PO; POTA20TA4 PO
[2020-09-28] MEDS ORDERED: IPRATRPIUM/ALBUTEROL 0.5/2.5MG 3 ML NEBU. NEB ONE (15:15)
[2020-09-28 15:35] LABS: BASO % 0 % (0-3); EOS # 0.2 x10^3/uL (0.0-0.7); EOS % 3 % (0-3); HEMATOCRIT 60.2 % (39.0-53.0); HEMOGLOBIN 19.1 g/dL (13.0-17.5); LYMPH # 0.8 x10^3/uL (1.0-4.8); LYMPH % 11 % (24-48); MEAN CORPUSCULAR HEMOGLOBIN 31 pg (25-35); MEAN CORPUSCULAR HGB CONC 32 g/dL (31-37); MEAN CORPUSCULAR VOLUME 99 fL (79-100); MONO # 0.7 x10^3/uL (0.0-1.1); MONO % 9 % (0-9); NEUT # 5.7 x10^3uL (1.8-7.7); NEUT % 77 % (31-73); PLATELET COUNT 126 x10^3/uL (140-400); RED BLOOD COUNT 6.09 x10^6/uL (4.30-5.70); RED CELL DISTRIBUTION WIDTH 17.3 % (11.5-14.5); WHITE BLOOD COUNT 7.4 x10^3/uL (4.0-11.0)
--- NOTE | 2020-09-28 15:35 | RAD ---
AP chest. HISTORY: Cough, dyspnea AP view was taken of the chest. The heart is enlarged. There are hazy bilateral infiltrates versus pu lmonary edema worse on the right compared to the left.. Atypical or Covid-19 pneumonia is possible, h eart failure pulmonary edema is possible. IMPRESSION: 1. Cardiomegaly. 2. Hazy infiltrates or edema worse on the right than on the left. Electronically signed by: Jason Holbrook MD (09/28/2020 3:33 PM) [id number]
[2020-09-28 15:43] LABS: CALCIUM 8.8 mg/dL (8.5-10.1); CREATININE 0.9 mg/dL (0.7-1.3); GFR 86.4; POTASSIUM 4.9 mmol/L (3.5-5.1)
[2020-09-28 15:55] LABS: ALBUMIN 3.5 g/dL (3.4-5.0); ALBUMIN/GLOBULIN RATIO 0.9 (1.0-1.7); MAGNESIUM 2.5 mg/dL (1.8-2.4); PHOSPHORUS 4.8 mg/dL (2.6-4.7); TOTAL BILIRUBIN 0.8 mg/dL (0.2-1.0); TOTAL PROTEIN 7.6 g/dL (6.4-8.2)
--- NOTE | 2020-09-28 16:00 | PHYS DOC ---
Past History Past Medical History: Cancer, CHF, COPD, Heart Disease, Hypertension, Other Additional Past Medical Histor: melanoma Past Surgical History: Tonsillectomy, Other Additional Past Surgical Histo: bilat knee arthoscopic Alcohol Use: Heavy General Adult EDM: Chief Complaint: SHORTNESS OF BREATH HPI: HPI: Patient is a 59-year-old brought by EMS for hypoxia and lethargy. Per EMS report patient was found in bed by family and difficult to arouse. EMS states on arrival he had his nasal cannula on (usually 5 L) and CPAP machine of that. They noted that there is cyanosis to his nose and lips. Was placed on their CPAP and his initial oxygen saturation was 63%. EMS did not check the levels on his oxygen tanks. Brought up to 95% oxygen saturation arrival. Patient states he has a history of CHF and volume overload. Patient denies any history of COPD or asthma but smokes 1 pack of cigarettes per day. Has had cough. Has not had his Covid vaccines. Review of Systems: Review of Systems: All other systems within normal limits except for as noted in the HPI Current Medications: Current Meds: Current Medications Medications (Trade) Dose Ordered Sig/Valentin Start Time Stop Time Status Last Admin Dose Admin Albuterol/ Ipratropium (Duoneb) 3 ml 1X ONCE 09/28/20 15:15 09/28/20 15:19 DC Allergies: Allergies: Allergies Coded Allergies Type Severity Reaction Last Updated Verified No Known Drug Allergies 04/04/18 No Physical Exam: PE: Constitutional: Well developed, well nourished, ill-appearing HENT: Normocephalic, atraumatic, bilateral external ears normal, nose normal. [] Eyes: PERRLA, conjunctiva normal, no discharge. [] Neck: No rigidity, supple, no stridor. [] Cardiovascular: Regular rate and rhythm, brisk cap refill [] Lungs & Thorax: Tachypneic labored respirations currently on CPAP coarse lung sounds diffusely Abdomen: Soft, distended, ventral and umbilical hernias that are reducible. No tenderness Skin: Warm, dry, no erythema, no rash. [] Back: Unremarkable Extremities: No deformities, range of motion grossly intact, bilateral lower extremity edema [] Neurologic: Alert and oriented X 3, no focal deficits noted. [] Psychologic: Affect normal, judgement normal, mood normal. [] Current Patient Data: Labs: Laboratory Tests Test 09/28/20 15:14 White Blood Count 7.4 x10^3/uL (4.0-11.0) Red Blood Count 6.09 x10^6/uL (4.30-5.70) H Hemoglobin 19.1 g/dL (13.0-17.5) H Hematocrit 60.2 % (39.0-53.0) H Mean Corpuscular Volume 99 fL (79-100) Mean Corpuscular Hemoglobin 31 pg (25-35) Mean Corpuscular Hemoglobin Concent 32 g/dL (31-37) Red Cell Distribution Width 17.3 % (11.5-14.5) H Platelet Count 126 x10^3/uL (140-400) L Neutrophils (%) (Auto) 77 % (31-73) H Lymphocytes (%) (Auto) 11 % (24-48) L Monocytes (%) (Auto) 9 % (0-9) Eosinophils (%) (Auto) 3 % (0-3) Basophils (%) (Auto) 0 % (0-3) Neutrophils # (Auto) 5.7 x10^3uL (1.8-7.7) Lymphocytes # (Auto) 0.8 x10^3/uL (1.0-4.8) L Monocytes # (Auto) 0.7 x10^3/uL (0.0-1.1) Eosinophils # (Auto) 0.2 x10^3/uL (0.0-0.7) Basophils # (Auto) 0.0 x10^3/uL (0.0-0.2) Sodium Level 147 mmol/L (136-145) H Potassium Level 4.9 mmol/L (3.5-5.1) Chloride Level 104 mmol/L (98-107) Carbon Dioxide Level 40 mmol/L (21-32) H Anion Gap 3 (6-14) L Blood Urea Nitrogen 11 mg/dL (8-26) Creatinine 0.9 mg/dL (0.7-1.3) Estimated GFR (Cockcroft-Gault) 86.4 BUN/Creatinine Ratio 12 (6-20) Glucose Level 107 mg/dL (70-99) H Calcium Level 8.8 mg/dL (8.5-10.1) Phosphorus Level Pending Magnesium Level Pending Total Bilirubin Pending Aspartate Amino Transferase (AST) Pending Alanine Aminotransferase (ALT) Pending Alkaline Phosphatase Pending SK-Pzs-T-Type Natriuretic Peptide Pending Total Protein Pending Albumin Pending Albumin/Globulin Ratio Pending Vital Signs: Vital Signs Date Time Temp Pulse Resp B/P (MAP) Pulse Ox O2 Delivery O2 Flow Rate FiO2 09/28/20 15:21 98.9 92 24 134/79 (97) 93 BiPAP/CPAP EKG: EKG: Sinus rhythm, rate 80 bpm, normal axis, no ST elevation or depression. Incomplete right bundle branch block [] Radiology/Procedures: Radiology/Procedures: [address] [address] IMAGING REPORT Signed PATIENT: DANAE HERRERA ACCOUNT: [id number] : 1960 LOCATION: ER AGE: 59 SEX: M EXAM STATUS: REG ER ORD. PHYSICIAN: ANASTACIO KRAUSE MD REASON: cough, dyspnea PROCEDURE: CHEST AP ONLY AP chest. HISTORY: Cough, dyspnea AP view was taken of the chest. The heart is enlarged. There are hazy bilateral infiltrates versus pulmonary edema worse on the right compared to the left.. Atypical or Covid-19 pneumonia is possible, heart failure pulmonary edema is possible. IMPRESSION: 1. Cardiomegaly. 2. Hazy infiltrates or edema worse on the right than on the left. Electronically signed by: Jason Holbrook MD (09/28/2020 3:33 PM) [id number] DICTATED AND SIGNED BY: JASON HOLBROOK MD DATE: 09/28/20 1532 CC: ANASTACIO KRAUSE MD; CHARO MILLS ~MTH0 0 [][address] [address] IMAGING REPORT Signed PATIENT: DANAE HERRERA ACCOUNT: [id number] : 1960 LOCATION: ER AGE: 59 SEX: M EXAM STATUS: REG ER ORD. PHYSICIAN: ANASTACIO KRAUSE MD REASON: dyspnea, positive dimer, 100mls omni 350 PROCEDURE: CT ANGIOGRAPHY CHEST Exam: CT of chest with contrast INDICATION: Dyspnea, positive d-dimer TECHNIQUE: Sequential axial images through the chest obtained following the administration of 100 mL of Isovue-370 IV contrast. Sagittal and coronal reformatted images were reconstructed from the axial data and reviewed. 3-D reformatted images were reconstructed from the axial data and reviewed. Exposure: One or more of the following in the visualized dose reduction techniques were utilized for this examination: 1. Automated exposure control 2. Adjustment of the MA and/or KV according to patient size 3. Use of iterative of reconstructive technique Comparisons: Chest x-ray same day FINDINGS: Visual is portions of the thyroid are unremarkable. Bilateral hilar adenopathy is noted. Heart size is normal. No pericardial effusion. Thoracic aorta has a normal course and caliber. Pulmonary artery is not enlarged. No pulmonary embolus identified within the main, lobar or segmental pulmonary arteries. Airways are patent. Mild centrilobular emphysematous change noted at the upper lungs. No consolidation or pneumothorax. Small right pleural effusion. Visualized upper abdomen is unremarkable. No suspicious osseous lesions or acute fractures. IMPRESSION: 1. No pulmonary embolus identified within the main, lobar or segmental pulmonary arteries. 2. Small right pleural effusion with adjacent airspace disease likely atelectasis. Electronically signed by: Kaley Taylor MD (09/28/2020 5:43 PM) [facility] DICTATED AND SIGNED BY: KALEY TAYLOR MD DATE: 09/28/20 1736 CC: ANASTACIO KRAUSE MD; CHARO MILLS ~MTH0 0 Heart Score: C/O Chest Pain: No Risk Factors: Risk Factors: DM, Current or recent (<one month) smoker, HTN, HLP, family history of CAD, obesity. Risk Scores: Score 0 - 3: 2.5% MACE over next 6 weeks - Discharge Home Score 4 - 6: 20.3% MACE over next 6 weeks - Admit for Clinical Observation Score 7 - 10: 72.7% MACE over next 6 weeks - Early Invasive Strategies Course & Med Decision Making: Course & Med Decision Making Pertinent Labs and Imaging studies reviewed. (See chart for details) [] Mychal Disclaimer: Mychal Disclaimer: This electronic medical record was generated, in whole or in part, using a voice recognition dictation system. Departure Departure: Impression: Primary Impression: Acute on chronic respiratory failure with hypoxia and hypercapnia Disposition: 02 SHORT TERM HOSPITAL Condition: GUARDED Referrals: CHARO MILLS (PCP) ANASTACIO KRAUSE MD Sep 28, 2020 16:00
[2020-09-28] MEDS ORDERED: IV NORMAL SALINE 50ML 50 ML ONE (16:28)
[2020-09-28] MEDS ORDERED: cefTRIAXone SODIUM 1 GM VIAL ONE (16:28)
[2020-09-28] MEDS ORDERED: DOXYCYCLINE HYCLATE 100 MG TABLET PO ONE (16:30)
[2020-09-28] MEDS ORDERED: CONTRAST GIVEN. MC PRN (17:00)
[2020-09-28] MEDS ORDERED: IOHEXOL 350 MG/ML 100 ML VIAL. IV ONE (17:00)
[2020-09-28 17:39] LABS: BGAS PH 7.27 (7.35-7.46)
--- NOTE | 2020-09-28 17:45 | RAD ---
Exam: CT of chest with contrast INDICATION: Dyspnea, positive d-dimer TECHNIQUE: Sequential axial images through the chest obtained following the administration of 100 mL of Isovue-370 IV contrast. Sagittal and coronal reformatted images were reconstructed from the axial data and reviewed. 3-D reformatted images were reconstructed from the axial data and reviewed. Exposure: One or more of the following in the visualized dose reduction techniques were utilized for this examination: 1. Automated exposure control 2. Adjustment of the MA and/or KV according to patient size 3. Use of iterative of reconstructive technique Comparisons: Chest x-ray same day FINDINGS: Visual is portions of the thyroid are unremarkable. Bilateral hilar adenopathy is noted. Heart size is normal. No pericardial effusion. Thoracic aorta has a normal course and caliber. Pulmon deborah artery is not enlarged. No pulmonary embolus identified within the main, lobar or segmental pulmo nary arteries. Airways are patent. Mild centrilobular emphysematous change noted at the upper lungs. No consolidatio n or pneumothorax. Small right pleural effusion. Visualized upper abdomen is unremarkable. No suspicious osseous lesions or acute fractures. IMPRESSION: 1. No pulmonary embolus identified within the main, lobar or segmental pulmonary arteries. 2. Small right pleural effusion with adjacent airspace disease likely atelectasis. Electronically signed by: Kaley Clarke MD (09/28/2020 5:43 PM) [facility]
--- NOTE | 2020-09-28 18:36 | EKG ---
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
[2020-09-28 19:41] LABS: BGAS PH 7.35 (7.35-7.46)
[2020-09-28 20:25] VITALS: BP 130/90
== END 2020-09-28 20:30 | disposition short-term general hospital (02) ==
LOC: ER 15:07
DX: J96.01 Acute respiratory failure with hypoxia (principal); J96.22 Acute and chronic respiratory failure with hypercapnia; I11.0 Hypertensive heart disease with heart failure; I50.9 Heart failure, unspecified; J44.9 Chronic obstructive pulmonary disease, unspecified; F10.20 Alcohol dependence, uncomplicated; F17.210 Nicotine dependence, cigarettes, uncomplicated; Z20.822 Contact with and (suspected) exposure to COVID-19; Y90.9 Presence of alcohol in blood, level not specified
CPT/HCPCS: 36415; 36600; 71045; 71275; 80053; 82803; 83605; 83735; 83880; 84100; 84484; 85025; 85379; 85610; 87040; 87077; 87205; 93005; 94640; 96365; 99285; C9803; J0696; Q9967; U0003

== ENCOUNTER 2020-11-13 18:03 | Emergency (ER) | payer OTHER ==
[~2020-11-13] VITALS: Ht 185.4 cm; Wt 125.0 kg
[2020-11-13] MEDS ORDERED: PROPOFOL 100 ML IV ONE (18:12)
[2020-11-13] MEDS ORDERED: PHENYLEPHRINE 10 MG/ML VIAL. IV ONE (18:13)
--- NOTE | 2020-11-13 19:04 | RAD ---
XR CHEST 1V Clinical Indication: Reason: UNRESPONSIVE, INTUBATION. : Comparison: AP chest September 28, 2020. Findings: The left costophrenic angle is excluded. Right chest defibrillator pad is identified. There is endotr acheal tube, tip is at the level of the clavicles. The cardiomediastinal silhouette is prominent but unchanged. There is pulmonary vascular congestion. There are patchy bilateral airspace opacities. No obvious pneumothorax. IMPRESSION: 1. Endotracheal tube tip at the level the clavicles. 2. Stable cardiac enlargement. 3. Pulmonary vascular congestion. 4. Patchy bilateral airspace opacities may be pulmonary edema or infiltrate. Electronically signed by: Jb Negro MD (11/13/2020 7:01 PM) [facility]
--- NOTE | 2020-11-13 19:08 | PHYS DOC ---
Past History Past Medical History: Cancer, CHF, COPD, Heart Disease, Hypertension, Other Additional Past Medical Histor: melanoma Past Surgical History: Tonsillectomy, Other Additional Past Surgical Histo: bilat knee arthoscopic Alcohol Use: Heavy Adult General HPI HPI Patient is a 59-year-old male with a past medical history significant for CHF and COPD who recently, over the last couple of days has had increased cough, congestion and feeling ill who presents to the emergency department in acute distress via EMS. Per EMS and family they were at the family's bar celebrating when he began to become short of breath and collapsed. States he was turning blue and the bar. EMS states when they arrived he was cyanotic and had oxygen saturations in the 50s. EMS states they began bagging immediately when they found a pulse which did improve the color of his skin and oxygen saturations into the low 80s. Patient remained unresponsive all the way to the emergency department. Per son, he did complain of increased cough and sputum production and feeling unwell over the last week. Review of Systems Review of Systems Review of systems unable to be obtained due to condition of patient Current Medications Current Medications Current Medications Medications (Trade) Dose Ordered Sig/Valentin Start Time Stop Time Status Last Admin Dose Admin Furosemide (Lasix) 40 mg 1X ONCE 11/13/20 19:15 11/13/20 19:16 UNV Levofloxacin/ Dextrose 150 ml @ 100 mls/hr 1X ONCE 11/13/20 19:00 11/13/20 20:29 Phenylephrine HCl (Jimmy-Synephrine Inj) 10 mg STK-MED ONCE 11/13/20 18:13 11/13/20 18:14 DC Propofol 100 ml @ As Directed STK-MED ONCE 11/13/20 18:12 11/13/20 18:13 DC Allergies Allergies Allergies Coded Allergies Type Severity Reaction Last Updated Verified No Known Drug Allergies 04/04/18 No Physical Exam Physical Exam Constitutional: Well developed, well nourished, in acute distress HENT: Normocephalic, atraumatic, oropharynx moist, no oral exudates, Eyes: Pupils equal and sluggish, chemosis, no discharge. [] Neck: Normal range of motion, no stridor. [] Cardiovascular: Strong pulse, capillary refill good, warm skin, sinus tachycardia Lungs & Thorax: Bilateral breath sounds with global significant rhonchi and congestion, hypoxic respiratory distress/failure Abdomen: soft, no masses, no pulsatile masses. [] Skin: Diaphoretic and warm Back: No obvious deformities or bruising Extremities: No cyanosis, no clubbing, 3+ bilateral edema. [] Neurologic: GCS of 3, no movement in any extremities, does not respond to stimulus Psychologic: Affect normal, judgement normal, mood normal. [] EKG EKG [] Radiology/Procedures Radiology/Procedures [] Heart Score C/O Chest Pain: N/A Risk Factors: Risk Factors: DM, Current or recent (<one month) smoker, HTN, HLP, family history of CAD, obesity. Risk Scores: Risk Factors: DM, Current or recent (<one month) smoker, HTN, HLP, family history of CAD, obesity. Course & Med Decision Making Course & Med Decision Making Patient is a 59-year-old male who presents to the emergency department in acute hypoxic respiratory distress and cyanotic after going down in his bar [place] roximately 30 minutes earlier. Patient hypoxic for at least 20 minutes. On arrival patient in acute distress with a GCS of 3 and was immediately placed on the monitor with 2 IO's placed on bilateral tibia with an 18-gauge in the left arm placed by EMS. Nasal cannula and nonrebreather placed immediately at 15 for preoxygenation and denies urination. Immediately moved to intubation with a 7.5 ET tube using etomidate and rocuronium. Propofol and fentanyl for post sedation/pain management. Continued on IV fluid resuscitation. Laboratory analysis notable for leukocytosis, elevated lactic acid and pH of 7.1, PCO2 81. Repeat blood gas with a pH of 7.29, PCO2 of 63, lactate of 3.5, bicarb of 30, PO2 of 120. CT head with no acute intracranial abnormality. CT o f the chest with significant bilateral opacities/consolidations with some probable pleural effusions as well. Covid swab obtained. Cultures obtained and started on antibiotics. Discussed all findings with family and recommended admission to the ICU for continued evaluation and treatment. Given no beds at [facility] accepted patient to their service. Critical care time 60 minutes Mychal Disclaimer Dragon Disclaimer This electronic medical record was generated, in whole or in part, using a voice recognition dictation system. Departure Departure: Impression: Primary Impression: Acute on chronic respiratory failure with hypoxia and hypercapnia Additional Impressions: Pleural effusion Pneumonia Acidemia Disposition: 02 SHORT TERM HOSPITAL Condition: STABLE Referrals: CHARO MILLS (PCP) Problem Qualifiers MARGARITO GALINDO MD Nov 13, 2020 19:08
[2020-11-13 19:12] LABS: BILIRUBIN,URINE NEG (NEG); CLARITY,URINE CLEAR; COLOR,URINE YELLOW; GLUCOSE,URINE NEG (NEG); NITRITE,URINE NEG (NEG); UROBILINOGEN,URINE 0.2 mg/dL (0.2 mg/dL)
[2020-11-13 19:13] LABS: BASO # 0.1 x10^3/uL (0.0-0.2); BASO % 1 % (0-3); EOS # 0.5 x10^3/uL (0.0-0.7); EOS % 4 % (0-3); HEMATOCRIT 59.7 % (39.0-53.0); HEMOGLOBIN 18.7 g/dL (13.0-17.5); LYMPH # 3.1 x10^3/uL (1.0-4.8); LYMPH % 24 % (24-48); MEAN CORPUSCULAR HEMOGLOBIN 30 pg (25-35); MEAN CORPUSCULAR HGB CONC 31 g/dL (31-37); MEAN CORPUSCULAR VOLUME 97 fL (79-100); MONO # 1.1 x10^3/uL (0.0-1.1); MONO % 9 % (0-9); NEUT # 8.4 x10^3uL (1.8-7.7); NEUT % 63 % (31-73); PLATELET COUNT 149 x10^3/uL (140-400); RED BLOOD COUNT 6.16 x10^6/uL (4.30-5.70); RED CELL DISTRIBUTION WIDTH 17.1 % (11.5-14.5); WHITE BLOOD COUNT 13.2 x10^3/uL (4.0-11.0)
[2020-11-13] MEDS ORDERED: FUROSEMIDE 40 MG/4 ML VIAL IVP ONE (19:15)
[2020-11-13 19:16] LABS: CALCIUM 7.9 mg/dL (8.5-10.1); CREATININE 1.3 mg/dL (0.7-1.3); GFR 56.5; POTASSIUM 4.4 mmol/L (3.5-5.1)
[2020-11-13 19:20] LABS: BACTERIA,URINE FEW /HPF (0-FEW); RBC,URINE 20-40 /HPF (0-2); SQUAMOUS EPITHELIAL CELL,UR OCC /LPF
[2020-11-13 19:21] LABS: HYALINE CASTS, URINE MANY /HPF
[2020-11-13 19:29] LABS: ALBUMIN 3.5 g/dL (3.4-5.0); ALBUMIN/GLOBULIN RATIO 1.1 (1.0-1.7); MAGNESIUM 2.3 mg/dL (1.8-2.4); TOTAL BILIRUBIN 0.5 mg/dL (0.2-1.0); TOTAL PROTEIN 6.8 g/dL (6.4-8.2)
[2020-11-13 20:14] LABS: PLATELET CLUMP PRESENT; PLT ESTIMATE ADEQUATE (ADEQUATE); POLYCHROMASIA PRESENT
[2020-11-13 20:16] LABS: ANISOCYTOSIS PRESENT
--- NOTE | 2020-11-13 20:27 | RAD ---
PQRS Compliance Statement: One or more of the following individualized dose reduction techniques were utilized for this examinat ion: 1. Automated exposure control 2. Adjustment of the mA and/or kV according to patient size 3. Use of iterative reconstruction technique CT HEAD WITHOUT CONTRAST History: Reason: AMS, UNRESPONSIVE / Spl. Instructions: / History: Comparison: None. Procedure: Axial images are obtained of the head from the skull base through the vertex without IV co ntrast. Findings: Patient is intubated. The ventricles and sulci are normal for the patient's age. No mass-effect, midline shift, hemorrhage, extra-axial fluid collection, or obvious acute infarction is identified. Basilar cisterns are patent. Bone windows demonstrate no acute calvarial abnormality. Right maxillary sinus mucous retention cyst. Opacification of the nasal passages is seen. A nasal iftikhar mpet is seen. Mucosal thickening bilateral ethmoid sinuses. There is bilateral proptosis, correlate t o physical exam. Mastoid air cells are well aerated. IMPRESSION: No acute intracranial abnormality. Electronically signed by: Jb Negro MD (11/13/2020 8:24 PM) [facility]
--- NOTE | 2020-11-13 20:32 | RAD ---
Exam: CT of chest, abdomen and pelvis without contrast INDICATION: Altered mental status, unresponsive TECHNIQUE: Sequential axial images through the chest, abdomen and pelvis obtained without IV contrast . Sagittal and coronal reformatted images were reconstructed from the axial data and reviewed. Exposure: One or more of the following in the visualized dose reduction techniques were utilized for this examination: 1. Automated exposure control 2. Adjustment of the MA and/or KV according to patient size 3. Use of iterative of reconstructive technique Comparisons: 09/28/2020 FINDINGS: Visualized portions of the thyroid are unremarkable. Several prominent but not enlarged mediastinal l ymph nodes are identified. Heart is enlarged. No pericardial effusion. Thoracic aorta has a normal course and caliber. Pulmonary artery is not enlarged. Endotracheal tube noted within the trachea. Airways are patent. Mild centrilobular emphysematous boyd ge noted. There is small bilateral pleural effusions. Adjacent atelectasis. Evaluation of the abdominal organs limited to a to noncontrast technique. Liver, spleen, pancreas and adrenals are unremarkable. Gallbladder is distended. No perinephric inflammation or hydronephrosis. No renal or ureteral calculi are identified. Bladder is decompressed not well evaluated. Joseph balloon noted in the bladder. Prostate is not enlar ged. Large and small bowel are unremarkable. Appendix is normal. No free intra-abdominal air or fluid. No obstruction. There is a ventral hernia just fat-containing. Abdominal aorta has a normal course and caliber. No enlarged abdominal lymph nodes are identified. No suspicious osseous lesions or acute fractures. IMPRESSION: 1. Small bilateral pleural effusions with adjacent atelectasis. 2. Gallbladder is distended. Correlate with symptomatology and lab values to determine the need for further evaluation with ultrasound 3. Ventral hernia containing fat. Bowel appears normal without evidence for obstruction. Electronically signed by: Kaley Clarke MD (11/13/2020 8:30 PM) [facility]
[2020-11-13] MEDS ORDERED: IV RINGERS SOLUTION,LACTATED 1,000 ML IV ONE (21:30)
[2020-11-13 23:31] VITALS: BP 120/73
[2020-11-14] MEDS ORDERED: PROPOFOL 10,000 MCG/ML (20ML) VIAL IV ONE (01:17)
[2020-11-14] MEDS ORDERED: PROPOFOL 100 ML IV ONE ×2 (01:19→04:00)
[2020-11-14 02:17] LABS: BGAS PH 7.25 (7.35-7.46)
[2020-11-14 02:21] LABS: BGAS PH 7.29 (7.35-7.46)
[2020-11-14 02:29] LABS: BGAS PH 7.17 (7.35-7.46)
[2020-11-14] MEDS ORDERED: ROCURONIUM 50 MG/5 ML VIAL. IV ONE (03:45)
[2020-11-14] MEDS ORDERED: ETOMIDATE 40 MG/20 ML VIAL. INJ ONE (03:45)
[2020-11-14] MEDS ORDERED: PHENYLEPHRINE 10 MG/ML VIAL. IV ONE ×2 (04:15)
--- NOTE | 2020-11-14 14:07 | EKG ---
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
== END 2020-11-14 01:59 | disposition short-term general hospital (02) ==
LOC: ER 18:03
DX: J96.21 Acute and chronic respiratory failure with hypoxia (principal); J96.22 Acute and chronic respiratory failure with hypercapnia; J90 Pleural effusion, not elsewhere classified; J18.9 Pneumonia, unspecified organism; E87.2 Acidosis; I11.0 Hypertensive heart disease with heart failure; I50.9 Heart failure, unspecified; J44.9 Chronic obstructive pulmonary disease, unspecified; F10.20 Alcohol dependence, uncomplicated; Z20.822 Contact with and (suspected) exposure to COVID-19; Y90.9 Presence of alcohol in blood, level not specified
CPT/HCPCS: 31500; 36415; 36600; 51702; 70450; 71045; 71250; 74176; 80053; 81001; 82803; 83605; 83735; 83880; 84484; 85025; 85610; 85730; 87040; 87086; 93005; 96365; 96366; 96375; 99285; C9803; J1940; J1956; J2704; J3010; J7120; U0003; 94002